=== PATIENT | female | born 1995 | race Caucasian/White ===

== ENCOUNTER 2022-05-07 17:06 | Emergency (ER) | payer OTHER ==
[2022-05-07] MEDS ORDERED: SODIUM CHLORIDE 0.9% 1,000 ML IV STA (17:32)
[2022-05-07] MEDS ORDERED: ONDANSETRON 4 MG/2 ML VIAL IVP STA (17:32)
[2022-05-07] MEDS ORDERED: diphenhydrAMINE 50 MG/ML 1 ML VIAL IVP STA (17:34)
[2022-05-07] MEDS ORDERED: DEXAMETHASONE SOD PHOSPHATE 10 MG/ML 1 ML VIAL IV STA (17:34)
[2022-05-07] MEDS ORDERED: KETOROLAC 15 MG/ML 1 ML VIAL IVP STA (17:34)
--- NOTE | 2022-05-07 17:37 | ED ---
General Adult HPI - General Chief complaint: Recheck/Abnormal Lab/Rx Stated complaint: diabetic, kidney pain Time Seen by Provider: 05/07/22 17:22 Source: patient, family, RN notes reviewed Mode of arrival: ambulatory - History of Present Illness Initial comments: This is a 26-year-old female who presents to the emergency department for multiple complaints. Patient states that for the last day, she has felt dizzy, lightheaded, confused, and states that her right kidney hurts. She has urinary pressure but no burning or pain. Also reports associated chest pain and bouts where she feels like her heart is racing. She is a type I diabetic and states that she has been anxious about being able to get enough insulin lately. Also reports associated nausea that has been a problem for several months. Additionally, she has had a headache for the last 1-2 weeks that is not getting better with any [id number] medications. Denies any fevers, chills, sore throat, cough, abdominal pain, vomiting, or diarrhea. MD Complaint: headache, kidney pain, confusion, weakness - Related Data Previous Rx's Medication Instructions Recorded Ondansetron Odt [Zofran Odt] 4 mg PO Q8HR PRN #30 tab 05/07/22 Allergies Allergy/AdvReac Type Severity Reaction Status Date / Time clonazepam [From Klonopin] AdvReac Hallucinati Verified 05/07/22 17:15 ons Influenza Virus Vaccines AdvReac Unknown Verified 05/07/22 17:15 Penicillins AdvReac Unknown Verified 05/07/22 17:15 sulfamethoxazole AdvReac Nausea & Verified 05/07/22 17:15 [From Bactrim] Vomiting trimethoprim [From Bactrim] AdvReac Nausea & Verified 05/07/22 17:15 Vomiting benadry AdvReac Vomiting Uncoded 05/07/22 17:15 Review of Systems ROS Statement: Those systems with pertinent positive or pertinent negative responses have been documented in the HPI. ROS Other: All systems not noted in ROS Statement are negative. Past Medical History Past Medical History: Diabetes Mellitus Additional Past Medical History / Comment(s): alcohol and substance abuse(recovery) History of Any Multi-Drug Resistant Organisms: None Reported Past Surgical History: No Surgical Hx Reported Past Psychological History: Depression Smoking Status: Vaper Past Alcohol Use History: None Reported Past Drug Use History: Cocaine, Prescription Drug Abuse General Exam General appearance: alert, in no apparent distress Head exam: Present: atraumatic, normocephalic, normal inspection Respiratory exam: Present: normal lung sounds bilaterally. Absent: respiratory distress, wheezes, rales, rhonchi, stridor Cardiovascular Exam: Present: regular rate, normal rhythm, normal heart sounds. Absent: systolic murmur, diastolic murmur, rubs, gallop, clicks GI/Abdominal exam: Present: soft, normal bowel sounds. Absent: distended, tenderness, guarding, rebound, rigid Neurological exam: Present: alert, oriented X3, CN II-XII intact Psychiatric exam: Present: normal affect, normal mood Skin exam: Present: warm, dry, intact, normal color. Absent: rash Course Vital Signs 05/07/22 05/07/22 05/07/22 17:08 19:30 20:58 Temperature 98.0 F 97.8 F 97.8 F Pulse Rate 83 81 76 Respiratory 16 16 20 Rate Blood Pressure 135/77 132/78 130/80 O2 Sat by Pulse 100 99 99 Oximetry EKG Findings - EKG Comments: EKG Findings:: Sinus rhythm. Ventricular rate 80 bpm, [place] interval 163 ms, QRS duration 101 ms, QTC 412 ms. Medical Decision Making - Medical Decision Making This is a 26-year-old female who presents to the emergency department for multiple complaints, including right flank pain and a headache. Lab work and u rinalysis were nonactionable. Chest x-ray revealed no acute cardiopulmonary process. COVID was negative. Given the patient's concern and notable CVA tenderness, CT scan of the abdomen and pelvis was obtained. This revealed mild fulness of the upper collecting systems but no signs of a calculus or other irregularity to account for the patient's symptoms. Her symptoms were relatively unchanged after IV fluids, Zofran, Decadron, and Toradol. Patient declines any additional medications. Discussed that the flank pain may be related to a muscular strain. Advised anti-inflammatories such as ibuprofen and Tylenol. We also discussed muscle relaxers, however the patient declined. Prescription for Zofran provided for any additional nausea. She was also given information for a new mortgage field inspector, as she is having difficulties with the one she has at [facility]. Return precautions reviewed in depth, the patient is instructed to return to the emergency department with any new, worsening, or concerning symptoms. Patient verbalized understanding. This case was discussed in detail with the attending ED physician. Presentation, findings, and treatment plan discussed in detail as well. - Lab Data Result diagrams: 05/07/22 17:57 05/07/22 17:57 Lab Results 05/07/22 05/07/22 05/07/22 Range/Units 17:57 17:57 17:57 WBC 8.6 (3.8-10.6) k/uL RBC 5.17 (3.80-5.40) m/uL Hgb 11.8 (11.4-16.0) gm/dL Hct 38.1 (34.0-46.0) % MCV 73.8 L (80.0-100.0) fL MCH 22.8 L (25.0-35.0) pg MCHC 30.9 L (31.0-37.0) g/dL RDW 14.3 (11.5-15.5) % Plt Count 255 (150-450) k/uL MPV 9.0 Neutrophils % 61 % Lymphocytes % 29 % Monocytes % 5 % Eosinophils % 1 % Basophils % 1 % Neutrophils # 5.2 (1.3-7.7) k/uL Lymphocytes # 2.5 (1.0-4.8) k/uL Monocytes # 0.5 (0-1.0) k/uL Eosinophils # 0.1 (0-0.7) k/uL Basophils # 0.1 (0-0.2) k/uL Microcytosis Slight PT 10.2 (9.0-12.0) sec INR 0.9 (<1.2) APTT 24.9 (22.0-30.0) sec D-Dimer 0.33 (<0.60) mg/L FEU Sodium 138 (137-145) mmol/L Potassium 3.6 (3.5-5.1) mmol/L Chloride 100 (98-107) mmol/L Carbon Dioxide 22 (22-30) mmol/L Anion Gap 16 mmol/L BUN 11 (7-17) mg/dL Creatinine 0.57 (0.52-1.04) mg/dL Est GFR (CKD-EPI)AfAm >90 (>60 ml/min/1.73 sqM) Est GFR (CKD-EPI)NonAf >90 (>60 ml/min/1.73 sqM) Glucose 133 H (74-99) mg/dL POC Glucose (mg/dL) (70-110) mg/dL POC Glu Design Quality Engineer ID Calcium 9.8 (8.4-10.2) mg/dL Magnesium 1.7 (1.6-2.3) mg/dL Total Bilirubin 0.6 (0.2-1.3) mg/dL AST 18 (14-36) U/L ALT 13 (4-34) U/L Alkaline Phosphatase 104 (38-126) U/L Troponin I (0.000-0.034) ng/mL Total Protein 8.3 H (6.3-8.2) g/dL Albumin 5.0 (3.5-5.0) g/dL Urine Color Urine Appearance (Clear) Urine pH (5.0-8.0) Ur Specific [place] (1.001-1.035) Urine Protein (Negative) Urine Glucose (UA) (Negative) Urine Ketones (Negative) Urine Blood (Negative) Urine Nitrite (Negative) Urine Bilirubin (Negative) Urine Urobilinogen (<2.0) mg/dL Ur Leukocyte Esterase (Negative) Urine HCG, Qual (Not Detectd) Coronavirus (PCR) (Not Detectd) 05/07/22 05/07/22 05/07/22 Range/Units 17:57 18:14 18:14 WBC (3.8-10.6) k/uL RBC (3.80-5.40) m/uL Hgb (11.4-16.0) gm/dL Hct (34.0-46.0) % MCV (80.0-100.0) fL MCH (25.0-35.0) pg MCHC (31.0-37.0) g/dL RDW (11.5-15.5) % Plt Count (150-450) k/uL MPV Neutrophils % % Lymphocytes % % Monocytes % % Eosinophils % % Basophils % % Neutrophils # (1.3-7.7) k/uL Lymphocytes # (1.0-4.8) k/uL Monocytes # (0-1.0) k/uL Eosinophils # (0-0.7) k/uL Basophils # (0-0.2) k/uL Microcytosis PT (9.0-12.0) sec INR (<1.2) APTT (22.0-30.0) sec D-Dimer (<0.60) mg/L FEU Sodium (137-145) mmol/L Potassium (3.5-5.1) mmol/L Chloride (98-107) mmol/L Carbon Dioxide (22-30) mmol/L Anion Gap mmol/L BUN (7-17) mg/dL Creatinine (0.52-1.04) mg/dL Est GFR (CKD-EPI)AfAm (>60 ml/min/1.73 sqM) Est GFR (CKD-EPI)NonAf (>60 ml/min/1.73 sqM) Glucose (74-99) mg/dL POC Glucose (mg/dL) (70-110) mg/dL POC Glu Design Quality Engineer ID Calcium (8.4-10.2) mg/dL Magnesium (1.6-2.3) mg/dL Total Bilirubin (0.2-1.3) mg/dL AST (14-36) U/L ALT (4-34) U/L Alkaline Phosphatase (38-126) U/L Troponin I <0.012 (0.000-0.034) ng/mL Total Protein (6.3-8.2) g/dL Albumin (3.5-5.0) g/dL Urine Color Colorless Urine Appearance Clear (Clear) Urine pH 7.0 (5.0-8.0) Ur Specific [place] 1.002 (1.001-1.035) Urine Protein Negative (Negative) Urine Glucose (UA) Negative (Negative) Urine Ketones Negative (Negative) Urine Blood Negative (Negative) Urine Nitrite Negative (Negative) Urine Bilirubin Negative (Negative) Urine Urobilinogen <2.0 (<2.0) mg/dL Ur Leukocyte Esterase Negative (Negative) Urine HCG, Qual Not Detected (Not Detectd) Coronavirus (PCR) (Not Detectd) 05/07/22 05/07/22 Range/Units 18:37 20:12 WBC (3.8-10.6) k/uL RBC (3.80-5.40) m/uL Hgb (11.4-16.0) gm/dL Hct (34.0-46.0) % MCV (80.0-100.0) fL MCH (25.0-35.0) pg MCHC (31.0-37.0) g/dL RDW (11.5-15.5) % Plt Count (150-450) k/uL MPV Neutrophils % % Lymphocytes % % Monocytes % % Eosinophils % % Basophils % % Neutrophils # (1.3-7.7) k/uL Lymphocytes # (1.0-4.8) k/uL Monocytes # (0-1.0) k/uL Eosinophils # (0-0.7) k/uL Basophils # (0-0.2) k/uL Microcytosis PT (9.0-12.0) sec INR (<1.2) APTT (22.0-30.0) sec D-Dimer (<0.60) mg/L FEU Sodium (137-145) mmol/L Potassium (3.5-5.1) mmol/L Chloride (98-107) mmol/L Carbon Dioxide (22-30) mmol/L Anion Gap mmol/L BUN (7-17) mg/dL Creatinine (0.52-1.04) mg/dL Est GFR (CKD-EPI)AfAm (>60 ml/min/1.73 sqM) Est GFR (CKD-EPI)NonAf (>60 ml/min/1.73 sqM) Glucose (74-99) mg/dL POC Glucose (mg/dL) 60 L (70-110) mg/dL POC Glu Design Quality Engineer ID Lavere, Ali Calcium (8.4-10.2) mg/dL Magnesium (1.6-2.3) mg/dL Total Bilirubin (0.2-1.3) mg/dL AST (14-36) U/L ALT (4-34) U/L Alkaline Phosphatase (38-126) U/L Troponin I (0.000-0.034) ng/mL Total Protein (6.3-8.2) g/dL Albumin (3.5-5.0) g/dL Urine Color Urine Appearance (Clear) Urine pH (5.0-8.0) Ur Specific [place] (1.001-1.035) Urine Protein (Negative) Urine Glucose (UA) (Negative) Urine Ketones (Negative) Urine Blood (Negative) Urine Nitrite (Negative) Urine Bilirubin (Negative) Urine Urobilinogen (<2.0) mg/dL Ur Leukocyte Esterase (Negative) Urine HCG, Qual (Not Detectd) Coronavirus (PCR) Not Detected (Not Detectd) - EKG Data EKG Comments: Sinus rhythm. Ventricular rate 80 bpm, [place] interval 163 ms, QRS duration 101 ms, QTC 412 ms. - Radiology Data Radiology results: report reviewed, image reviewed Disposition Clinical Impression: Nausea, Right flank pain Disposition: HOME SELF-CARE Instructions (If sedation given, give patient instructions): Acute Headache (ED), Acute Nausea and Vomiting (ED), Flank Pain (ED) Additional Instructions: Return to the emergency department with any new, worsening, or concerning symptoms. Take the Zofran up to every 8 hours as needed for nausea and vomiting. You can contact Dr. Romero, as listed below, to become established with a new mortgage field inspector. Follow up with your primary care provider in 1-2 days. Prescriptions: Ondansetron Odt [Zofran Odt] 4 mg PO Q8HR PRN #30 tab PRN Reason: Nausea And Vomiting Is patient prescribed a controlled substance at d/c from ED?: No Referrals: Wayne Ramirez DO [Primary Care Provider] - 1-2 days Marilee Romero MD [STAFF PHYSICIAN] - 1-2 days
[2022-05-07 18:15] LABS: Basophils # (A) 0.1 k/uL (0-0.2); Basophils % (A) 1 %; Eosinophils # (A) 0.1 k/uL (0-0.7); Eosinophils % (A) 1 %; HCT 38.1 % (34.0-46.0); HGB 11.8 gm/dL (11.4-16.0); Lymphocytes # (A) 2.5 k/uL (1.0-4.8); Lymphocytes % (A) 29 %; MCH 22.8 pg (25.0-35.0); MCHC 30.9 g/dL (31.0-37.0); MCV 73.8 fL (80.0-100.0); Microcytosis Slight; Monocytes # (A) 0.5 k/uL (0-1.0); Monocytes % (A) 5 %; Neutrophils # (A) 5.2 k/uL (1.3-7.7); Neutrophils % (A) 61 %; Platelet Count 255 k/uL (150-450); RBC 5.17 m/uL (3.80-5.40); RDW 14.3 % (11.5-15.5); WBC 8.6 k/uL (3.8-10.6)
[2022-05-07 18:17] LABS: ALT 13 U/L (4-34); AST 18 U/L (14-36); African American GFR (CKD) >90 (>60 ml/min/1.73 sqM); Alkaline Phosphatase 104 U/L (38-126); Anion Gap 16 mmol/L; Blood Urea Nitrogen 11 mg/dL (7-17); Calcium 9.8 mg/dL (8.4-10.2); Carbon Dioxide 22 mmol/L (22-30); Chloride 100 mmol/L (98-107); Glucose 133 mg/dL (74-99); Magnesium 1.7 mg/dL (1.6-2.3); Non-African American GFR(CKD) >90 (>60 ml/min/1.73 sqM); Potassium 3.6 mmol/L (3.5-5.1); Sodium 138 mmol/L (137-145); Total Bilirubin 0.6 mg/dL (0.2-1.3); Total Protein 8.3 g/dL (6.3-8.2)
[2022-05-07 18:22] LABS: INR 0.9 (<1.2); Partial Thromboplastin Time 24.9 sec (22.0-30.0); Prothrombin Time 10.2 sec (9.0-12.0)
--- NOTE | 2022-05-07 18:36 | XR ---
EXAMINATION TYPE: XR chest 2V DATE OF EXAM: 05/07/2022 COMPARISON: NONE HISTORY: Weakness TECHNIQUE: 2 views FINDINGS: Heart and mediastinum are normal. Lungs are clear. Diaphragm is normal. Bony thorax is inta ct. IMPRESSION: Normal chest.
[2022-05-07 18:54] LABS: Appearance,Urine Clear (Clear); Bilirubin,Urine Negative (Negative); Blood,Urine Negative (Negative); Color,Urine Colorless; Glucose,Urine (UA) Negative (Negative); Ketones,Urine Negative (Negative); Leukocyte Esterase,Urine Negative (Negative); Nitrite,Urine Negative (Negative); Protein,Urine Negative (Negative); Specific Gravity,Urine 1.002 (1.001-1.035); Urobilinogen,Urine <2.0 mg/dL (<2.0)
[2022-05-07] MEDS ORDERED: MORPHINE SULFATE 2 MG/ML SYRINGE IVP STA (19:34)
[2022-05-07] MEDS ORDERED: ORPHENADRINE 30 MG/ML 2 ML VIAL IVP STA (19:34)
--- NOTE | 2022-05-07 19:59 | CT ---
EXAMINATION TYPE: CT abdomen pelvis wo con DATE OF EXAM: 05/07/2022 COMPARISON: None HISTORY: Right sided flank pain CT DLP: 672.6 mGycm Automated exposure control for dose reduction was used. Images obtained from the diaphragm to the floor of the pelvis with no contrast. The lung bases are clear. No pleural effusion. Heart size is normal. No pericardial effusion. Liver s pleen stomach pancreas gallbladder appear intact. The bile ducts are not dilated. There is no adrenal mass. Kidneys have normal size. There is some fullness of the right ureter and ri ght renal pelvis. No ureteral calculus seen. Similar appearance is also present on the left side. No renal atrophy. No retroperitoneal adenopathy. The bladder distends smoothly. No inguinal hernia. No free fluid in th e pelvis. No evidence of a pelvic mass. There is no mesenteric edema. No ascites or free air. No sign of a bowel obstruction. The lumbar vert ebra. Intact with no compression fracture. Posterior elements are intact. Uterus is retroverted. Appe ndix is medial and posterior and appears normal. The bony pelvis is intact. The hip joints are intact. IMPRESSION: There is mild fullness of the upper collecting systems but no ureteral calculus seen. Clinical signif icance is not clear.
[2022-05-07 20:13] LABS: Glucose,Whole Blood 60 mg/dL (70-110)
[2022-05-07] MEDS ORDERED: ONDANSETRON 4 MG ODT STARTER PACK 2 TAB BTL PO STA (20:33)
[2022-05-07 20:46] VITALS: TEMP 97.8
[2022-05-07 20:59] VITALS: BP 130/80; PULSE 76; RESP 20
== END 2022-05-07 20:58 | disposition home or self-care (01) ==
LOC: EC 17:06
DX: R10.9 Unspecified abdominal pain (principal); E11.9 Type 2 diabetes mellitus without complications; F32.A Depression, unspecified; F17.290 Nicotine dependence, other tobacco product, uncomplicated; Z88.8 Allergy status to other drugs, medicaments and biological substances; Z88.7 Allergy status to serum and vaccine; Z88.2 Allergy status to sulfonamides; Z79.899 Other long term (current) drug therapy; Z20.822 Contact with and (suspected) exposure to COVID-19
CPT/HCPCS: 36415; 93005; 85379; 80053; 83735; 84484; 85025; 85610; 85730; 81003; 81025; 87635; 71046; 74176; 99284; 96374; 96375 ×2; 96361; J1100; J2405; J1885; S0119

== ENCOUNTER 2023-02-11 13:27 | Emergency (ER) | payer OTHER ==
[2023-02-11 13:36] VITALS: RESP 18
[2023-02-11 13:38] LABS: Glucose,Whole Blood 466 mg/dL (70-110)
[2023-02-11 14:26] LABS: Basophils % (A) 1 %; Eosinophils # (A) 0.1 k/uL (0-0.7); Eosinophils % (A) 2 %; HCT 32.9 % (34.0-46.0); HGB 10.2 gm/dL (11.4-16.0); Hypochromasia Marked; Lymphocytes # (A) 1.4 k/uL (1.0-4.8); Lymphocytes % (A) 28 %; MCH 22.7 pg (25.0-35.0); MCHC 31.1 g/dL (31.0-37.0); MCV 72.9 fL (80.0-100.0); Mean Platelet Volume 8.8; Microcytosis Slight; Monocytes # (A) 0.3 k/uL (0-1.0); Monocytes % (A) 6 %; Neutrophils % (A) 61 %; Platelet Count 226 k/uL (150-450); RBC 4.52 m/uL (3.80-5.40); RDW 14.6 % (11.5-15.5); WBC 4.9 k/uL (3.8-10.6)
[2023-02-11 14:28] LABS: ALT 13 U/L (4-34); AST 16 U/L (14-36); African American GFR (CKD) >90 (>60 ml/min/1.73 sqM); Albumin 4.4 g/dL (3.5-5.0); Alkaline Phosphatase 154 U/L (38-126); Anion Gap 12 mmol/L; Blood Urea Nitrogen 14 mg/dL (7-17); Calcium 8.8 mg/dL (8.4-10.2); Carbon Dioxide 20 mmol/L (22-30); Chloride 99 mmol/L (98-107); Creatine Kinase 81 U/L (30-135); Glucose 462 mg/dL (74-99); Non-African American GFR(CKD) >90 (>60 ml/min/1.73 sqM); Potassium 4.9 mmol/L (3.5-5.1); Sodium 131 mmol/L (137-145); Total Bilirubin 0.6 mg/dL (0.2-1.3); Total Protein 7.4 g/dL (6.3-8.2)
[2023-02-11 14:32] LABS: INR 0.9 (<1.2); Partial Thromboplastin Time 23.8 sec (22.0-30.0)
[2023-02-11] MEDS ORDERED: SODIUM CHLORIDE 0.9% 1,000 ML IV ONE ×2 (14:41→15:55)
[2023-02-11] MEDS ORDERED: ACETAMINOPHEN TAB 325 MG TAB PO STA (14:42)
[2023-02-11 14:50] LABS: Appearance,Urine Clear (Clear); Bilirubin,Urine Negative (Negative); Blood,Urine Negative (Negative); Color,Urine Colorless; Glucose,Urine (UA) 4+ (Negative); Ketones,Urine 1+ (Negative); Leukocyte Esterase,Urine Negative (Negative); Nitrite,Urine Negative (Negative); PH, Urine 5.5 (5.0-8.0); Protein,Urine Negative (Negative); Urobilinogen,Urine <2.0 mg/dL (<2.0)
--- NOTE | 2023-02-11 14:56 | XR ---
EXAMINATION TYPE: XR chest 2V DATE OF EXAM: 02/11/2023 COMPARISON: 05/07/22 HISTORY: Chest pain TECHNIQUE: Frontal and lateral views of the chest are obtained. FINDINGS: There is no focal air space opacity. No evidence for pneumothorax. No pleural effusion. The cardiac silhouette size is within normal limits. The osseous structures are grossly intact. IMPRESSION: 1. No acute cardiopulmonary process.
[2023-02-11 15:02] LABS: Glucose,Whole Blood 349 mg/dL (70-110)
--- NOTE | 2023-02-11 15:22 | ED ---
General Adult HPI - General Chief complaint: Neuro Symptoms/Deficit Stated complaint: Chest Pain,Numbness,Type 1 [place] Time Seen by Provider: 02/11/23 14:35 Source: patient, RN notes reviewed Mode of arrival: ambulatory Limitations: no limitations - History of Present Illness Initial comments: 27-year-old female with past medical history significant for diabetes the latest one presents to the emergency department with multiple complaints. She reports a generalized headache, numbness and tingling in her head, weakness in her upper extremities and a sharp pain in her chest that is worse with movement. She reports that she was at work standing when this occurred. She has not taken anything for his symptoms. Denies any fevers, cough, pal pitations, shortness of breath, nausea, vomiting, abdominal pain, dysuria, hematuria. She reports that her sugars have not been under control - Related Data Home Medications Medication Instructions Recorded Confirmed Glucagon [Gvoke Pfs 1-Pack Syringe] 1 mg SQ ONCE PRN 02/11/23 02/11/23 INSULIN LISPRO (HumaLOG) [humaLOG] See Protocol SQ TID-W/MEALS 02/11/23 02/11/23 Insulin Glargine [Lantus Vial] 22 unit SQ DAILY 02/11/23 02/11/23 Montelukast [Singulair] 10 mg PO DAILY 02/11/23 02/11/23 Naltrexone HCl [Revia] 50 mg PO DAILY 02/11/23 02/11/23 Venlafaxine HCl [Effexor XR] 75 mg PO DAILY 02/11/23 02/11/23 Allergies Allergy/AdvReac Type Severity Reaction Status Date / Time clonazepam [From Klonopin] AdvReac Hallucinati Verified 02/11/23 17:23 ons Influenza Virus Vaccines AdvReac Unknown Verified 02/11/23 17:23 Penicillins AdvReac Unknown Verified 02/11/23 17:23 sulfamethoxazole AdvReac Nausea & Verified 02/11/23 17:23 [From Bactrim] Vomiting trimethoprim [From Bactrim] AdvReac Nausea & Verified 02/11/23 17:23 Vomiting benadry AdvReac Vomiting Uncoded 05/07/22 17:15 Review of Systems ROS Statement: Those systems with pertinent positive or pertinent negative responses have been documented in the HPI. ROS Other: All systems not noted in ROS Statement are negative. Past Medical History Past Medical History: Diabetes Mellitus Additional Past Medical History / Comment(s): alcohol and substance abuse(recovery), type 1 diabetes History of Any Multi-Drug Resistant Organisms: None Reported Past Surgical History: No Surgical Hx Reported Past Psychological History: Depression Smoking Status: Vaper Past Alcohol Use History: None Reported Past Drug Use History: Cocaine, Prescription Drug Abuse General Exam - General Exam Comments Initial Comments: General: Alert, in no acute distress Head: atraumatic normocephalic. Eyes PERRL, EOMI intact, mucous membranes moist Respiratory: Lungs clear to auscultation bilaterally Cardiovascular: Heart rate regular rate and rhythm Abdominal: Soft without guarding or rebound Extremities: Normal inspection with full range of motion and normal capillary refill Neuroogic: alert and oriented 3, CN II-XII intact, able to ambulate with steady gait Skin: warm dry and intact with normal color Limitations: no limitations Course Vital Signs 02/11/23 02/11/23 02/11/23 13:30 14:36 15:00 Temperature 98.3 F Pulse Rate 86 94 80 Respiratory 18 Rate Blood Pressure 120/82 121/83 O2 Sat by Pulse 98 98 Oximetry 02/11/23 02/11/23 02/11/23 15:30 16:00 16:30 Temperature Pulse Rate 67 71 69 Respiratory Rate Blood Pressure 122/87 117/84 126/94 O2 Sat by Pulse 100 Oximetry 02/11/23 02/11/23 02/11/23 17:00 17:30 18:00 Temperature Pulse Rate 70 75 74 Respiratory Rate Blood Pressure 114/85 121/84 118/88 O2 Sat by Pulse 100 100 Oximetry 02/11/23 18:04 Temperature 98.6 F Pulse Rate Respiratory Rate Blood Pressure O2 Sat by Pulse Oximetry Medical Decision Making - Medical Decision Making Was pt. sent in by a medical professional or institution (, PA, JERKER, urgent care, hospital, or group home...) When possible be specific @ -[No] Did you speak to anyone other than the patient for history (EMS, parent, family, police, friend...)? What history was obtained from this source @ -[No] Did you review nursing and triage notes (agree or disagree)? Why? @ -[I reviewed and agree with nursing and triage notes] Were old charts reviewed (outside hosp., previous admission, EMS record, old EK G, old radiological studies, urgent care reports/EKG's, group home records)? Report findings @ -[No old charts were reviewed] Differential Diagnosis (chest pain, altered mental status, abdominal pain women, abdominal pain men, vaginal bleeding, weakness, fever, dyspnea, syncope, headache, dizziness, GI bleed, back pain, seizure, CVA, palpatations, mental he alth, musculoskeletal)? @ -[not applicable] EKG interpreted by me (3pts min.). @ -[As above] X-rays interpreted by me (1pt min.). @ -[None done] CT interpreted by me (1pt min.). @ -[None done] U/S interpreted by me (1pt. min.). @ -[None done] What testing was considered but not performed or refused? (CT, X-rays, U/S, labs)? Why? @ -[None] What meds were considered but not given or refused? Why? @ -[None] Did you discuss the management of the patient with other professionals (professionals i.e. , PA, JERKER, lab, RT, psych nurse, social work instructor, dermatologist, teacher, chief human resources officer, returned case inspector)? Give summary @ -[No] Was smoking cessation discussed for >3mins.? @ -[No] Was critical care preformed (if so, how long)? @ -[No] Were there social determinants of health that impacted care today? How? (Homelessness, low income, unemployed, alcoholism, drug addiction, transportation, low edu. Level, literacy, decrease access to med. care, fpc, rehab)? @ -[No] Was there de-escalation of care discussed even if they declined (Discuss DNR or withdrawal of care, Hospice)? DNR status @ -[No] What co-morbidities impacted this encounter? (DM, HTN, Smoking, COPD, CAD, Cancer, CVA, ARF, Chemo, Hep., AIDS, mental health diagnosis, sleep apnea, morbi d obesity)? @ -[None] Was patient admitted / discharged? Hospital course, mention meds given and route, prescriptions, significant lab abnormalities, going to OR and other pertinent info. @ -Discharged. This is a 27-year-old female who presents to the emergency department with headache. Patient had a thorough history and physical exam performed on the ED. Physical exam is essentially unremarkable heart rate regular rate and rhythm. lungs clear to Auscultation bilaterally, abdomen soft nontender. Patient able to ambulate with a steady gait. Patient had i lab work and imaging performed which was negative. I discussed the results in detail with the patient verbalized understanding all questions were addressed. She was given tylenol and 2L IV fluids with mild symptomatic relief on the emergency department. return precautions were discussed at length. She was discharged in stable condition. Case discussed with ISRA Shafer Who agrees with plan Undiagnosed new problem with uncertain prognosis? @ -[No] Drug Therapy requiring intensive monitoring for toxicity (Heparin, Nitro, Insulin, Cardizem)? @ -[No] Were any procedures done? @ -[No] Diagnosis/symptom? @ -headache Acute, or Chronic, or Acute on Chronic? @ -acute Uncomplicated (without systemic symptoms) or Complicated (systemic symptoms)? @ -uncomplicated Side effects of treatment? @ -[No] Exacerbation, Progression, or Severe Exacerbation? @ -[No] Poses a threat to life or bodily function? How? (Chest pain, [place], [place], pneumonia, PE, COPD, DKA, ARF, appy, cholecystitis, CVA, Diverticulitis, Homicidal, Suicidal, threat to staff... and all critical care pts) @ -low likelihood - Lab Data Result diagrams: 02/11/23 13:59 02/11/23 13:59 Lab Results 02/11/23 02/11/23 02/11/23 Range/Units 13:34 13:59 13:59 WBC 4.9 (3.8-10.6) k/uL RBC 4.52 (3.80-5.40) m/uL Hgb 10.2 L (11.4-16.0) gm/dL Hct 32.9 L (34.0-46.0) % MCV 72.9 L (80.0-100.0) fL MCH 22.7 L (25.0-35.0) pg MCHC 31.1 (31.0-37.0) g/dL RDW 14.6 (11.5-15.5) % Plt Count 226 (150-450) k/uL MPV 8.8 Neutrophils % 61 % Lymphocytes % 28 % Monocytes % 6 % Eosinophils % 2 % Basophils % 1 % Neutrophils # 3.0 (1.3-7.7) k/uL Lymphocytes # 1.4 (1.0-4.8) k/uL Monocytes # 0.3 (0-1.0) k/uL Eosinophils # 0.1 (0-0.7) k/uL Basophils # 0.0 (0-0.2) k/uL Hypochromasia Marked Microcytosis Slight PT 10.0 (9.0-12.0) sec INR 0.9 (<1.2) APTT 23.8 (22.0-30.0) sec Sodium (137-145) mmol/L Potassium (3.5-5.1) mmol/L Chloride (98-107) mmol/L Carbon Dioxide (22-30) mmol/L Anion Gap mmol/L BUN (7-17) mg/dL Creatinine (0.52-1.04) mg/dL Est GFR (CKD-EPI)AfAm (>60 ml/min/1.73 sqM) Est GFR (CKD-EPI)NonAf (>60 ml/min/1.73 sqM) Glucose (74-99) mg/dL POC Glucose (mg/dL) 466 H (70-110) mg/dL POC Glu Stucco Plasterer ID Belval, Erin Calcium (8.4-10.2) mg/dL Total Bilirubin (0.2-1.3) mg/dL AST (14-36) U/L ALT (4-34) U/L Alkaline Phosphatase (38-126) U/L Creatine Kinase (30-135) U/L Troponin I (0.000-0.034) ng/mL Total Protein (6.3-8.2) g/dL Albumin (3.5-5.0) g/dL Urine Color Urine Appearance (Clear) Urine pH (5.0-8.0) Ur Specific [place] (1.001-1.035) Urine Protein (Negative) Urine Glucose (UA) (Negative) Urine Ketones (Negative) Urine Blood (Negative) Urine Nitrite (Negative) Urine Bilirubin (Negative) Urine Urobilinogen (<2.0) mg/dL Ur Leukocyte Esterase (Negative) 02/11/23 02/11/23 02/11/23 Range/Units 13:59 13:59 14:35 WBC (3.8-10.6) k/uL RBC (3.80-5.40) m/uL Hgb (11.4-16.0) gm/dL Hct (34.0-46.0) % MCV (80.0-100.0) fL MCH (25.0-35.0) pg MCHC (31.0-37.0) g/dL RDW (11.5-15.5) % Plt Count (150-450) k/uL MPV Neutrophils % % Lymphocytes % % Monocytes % % Eosinophils % % Basophils % % Neutrophils # (1.3-7.7) k/uL Lymphocytes # (1.0-4.8) k/uL Monocytes # (0-1.0) k/uL Eosinophils # (0-0.7) k/uL Basophils # (0-0.2) k/uL Hypochromasia Microcytosis PT (9.0-12.0) sec INR (<1.2) APTT (22.0-30.0) sec Sodium 131 L (137-145) mmol/L Potassium 4.9 (3.5-5.1) mmol/L Chloride 99 (98-107) mmol/L Carbon Dioxide 20 L (22-30) mmol/L Anion Gap 12 mmol/L BUN 14 (7-17) mg/dL Creatinine 0.46 L (0.52-1.04) mg/dL Est GFR (CKD-EPI)AfAm >90 (>60 ml/min/1.73 sqM) Est GFR (CKD-EPI)NonAf >90 (>60 ml/min/1.73 sqM) Glucose 462 H (74-99) mg/dL POC Glucose (mg/dL) (70-110) mg/dL POC Glu Stucco Plasterer ID Calcium 8.8 (8.4-10.2) mg/dL Total Bilirubin 0.6 (0.2-1.3) mg/dL AST 16 (14-36) U/L ALT 13 (4-34) U/L Alkaline Phosphatase 154 H (38-126) U/L Creatine Kinase 81 (30-135) U/L Troponin I <0.012 (0.000-0.034) ng/mL Total Protein 7.4 (6.3-8.2) g/dL Albumin 4.4 (3.5-5.0) g/dL Urine Color Colorless Urine Appearance Clear (Clear) Urine pH 5.5 (5.0-8.0) Ur Specific [place] 1.030 (1.001-1.035) Urine Protein Negative (Negative) Urine Glucose (UA) 4+ H (Negative) Urine Ketones 1+ H (Negative) Urine Blood Negative (Negative) Urine Nitrite Negative (Negative) Urine Bilirubin Negative (Negative) Urine Urobilinogen <2.0 (<2.0) mg/dL Ur Leukocyte Esterase Negative (Negative) 02/11/23 Range/Units 14:57 WBC (3.8-10.6) k/uL RBC (3.80-5.40) m/uL Hgb (11.4-16.0) gm/dL Hct (34.0-46.0) % MCV (80.0-100.0) fL MCH (25.0-35.0) pg MCHC (31.0-37.0) g/dL RDW (11.5-15.5) % Plt Count (150-450) k/uL MPV Neutrophils % % Lymphocytes % % Monocytes % % Eosinophils % % Basophils % % Neutrophils # (1.3-7.7) k/uL Lymphocytes # (1.0-4.8) k/uL Monocytes # (0-1.0) k/uL Eosinophils # (0-0.7) k/uL Basophils # (0-0.2) k/uL Hypochromasia Microcytosis PT (9.0-12.0) sec INR (<1.2) APTT (22.0-30.0) sec Sodium (137-145) mmol/L Potassium (3.5-5.1) mmol/L Chloride (98-107) mmol/L Carbon Dioxide (22-30) mmol/L Anion Gap mmol/L BUN (7-17) mg/dL Creatinine (0.52-1.04) mg/dL Est GFR (CKD-EPI)AfAm (>60 ml/min/1.73 sqM) Est GFR (CKD-EPI)NonAf (>60 ml/min/1.73 sqM) Glucose (74-99) mg/dL POC Glucose (mg/dL) 349 H (70-110) mg/dL POC Glu St[employer]o Plasterer ID Manuela Velázquez Calcium (8.4-10.2) mg/dL Total Bilirubin (0.2-1.3) mg/dL AST (14-36) U/L ALT (4-34) U/L Alkaline Phosphatase (38-126) U/L Creatine Kinase (30-135) U/L Troponin I (0.000-0.034) ng/mL Total Protein (6.3-8.2) g/dL Albumin (3.5-5.0) g/dL Urine Color Urine Appearance (Clear) Urine pH (5.0-8.0) Ur Specific [place] (1.001-1.035) Urine Protein (Negative) Urine Glucose (UA) (Negative) Urine Ketones (Negative) Urine Blood (Negative) Urine Nitrite (Negative) Urine Bilirubin (Negative) Urine Urobilinogen (<2.0) mg/dL Ur Leukocyte Esterase (Negative) Disposition Clinical Impression: Headache Disposition: HOME SELF-CARE Condition: Stable Instructions (If sedation given, give patient instructions): Acute Headache (ED), Diabetes Type 1: Management (ED) Additional Instructions: Please return to the nearest emergency department if symptoms worsen or persist Is patient prescribed a controlled substance at d/c from ED?: No Referrals: Wayne Ramirez DO [Primary Care Provider] - 1-2 days Time of Disposition: 17:47
[2023-02-11 18:04] VITALS: BP 118/88; PULSE 74
[2023-02-11 18:07] VITALS: TEMP 98.6
== END 2023-02-11 18:10 | disposition home or self-care (01) ==
LOC: EC 13:27
DX: R51.9 Headache, unspecified (principal); E10.9 Type 1 diabetes mellitus without complications; F32.A Depression, unspecified; Z79.4 Long term (current) use of insulin; Z79.899 Other long term (current) drug therapy; Z88.0 Allergy status to penicillin; Z88.1 Allergy status to other antibiotic agents; Z88.2 Allergy status to sulfonamides; Z88.7 Allergy status to serum and vaccine
CPT/HCPCS: 36415; 71046; 80053; 81003; 82550; 84484; 85025; 85610; 85730; 93005; 96360; 99285

== ENCOUNTER 2023-03-13 14:03 | Inpatient (IN) | payer OTHER ==
[2023-03-13 14:41] LABS: Glucose,Whole Blood 393 mg/dL (70-110)
[2023-03-13 15:08] LABS: Basophils % (A) 1 %; Eosinophils % (A) 1 %; HGB 11.7 gm/dL (11.4-16.0); Hypochromasia Marked; Lymphocytes # (A) 1.5 k/uL (1.0-4.8); Lymphocytes % (A) 30 %; MCH 22.8 pg (25.0-35.0); MCHC 31.5 g/dL (31.0-37.0); MCV 72.3 fL (80.0-100.0); Microcytosis Moderate; Monocytes # (A) 0.3 k/uL (0-1.0); Monocytes % (A) 5 %; Neutrophils % (A) 61 %; Platelet Count 213 k/uL (150-450); RBC 5.11 m/uL (3.80-5.40); RDW 15.1 % (11.5-15.5); WBC 4.9 k/uL (3.8-10.6)
[2023-03-13 15:17] LABS: INR 0.9 (<1.2); Prothrombin Time 9.7 sec (9.0-12.0)
[2023-03-13 15:59] LABS: ALT 15 U/L (4-34); AST 19 U/L (14-36); African American GFR (CKD) >90 (>60 ml/min/1.73 sqM); Albumin 5.1 g/dL (3.5-5.0); Alkaline Phosphatase 121 U/L (38-126); Anion Gap 21 mmol/L; Blood Urea Nitrogen 18 mg/dL (7-17); Calcium 9.4 mg/dL (8.4-10.2); Chloride 101 mmol/L (98-107); Glucose 391 mg/dL (74-99); Non-African American GFR(CKD) >90 (>60 ml/min/1.73 sqM); Potassium 4.9 mmol/L (3.5-5.1); Sodium 131 mmol/L (137-145); Total Bilirubin 0.8 mg/dL (0.2-1.3)
[2023-03-13 16:12] LABS: Carbon Dioxide 9 mmol/L (22-30)
[2023-03-13 18:08] LABS: Appearance,Urine Clear (Clear); Bilirubin,Urine Negative (Negative); Blood,Urine Negative (Negative); Color,Urine Colorless; Leukocyte Esterase,Urine Negative (Negative); Nitrite,Urine Negative (Negative); Protein,Urine Negative (Negative); Specific Gravity,Urine 1.021 (1.001-1.035); Urobilinogen,Urine <2.0 mg/dL (<2.0)
[2023-03-13 18:24] LABS: Glucose,Urine (UA) 4+ (Negative); Ketones,Urine 4+ (Negative)
[2023-03-13] MEDS ORDERED: SODIUM CHLORIDE 0.9% 1,000 ML IV ONE (19:37)
[2023-03-13 20:56] LABS: VBG PH 7.21 (7.31-7.41)
[2023-03-13] MEDS ORDERED: DEXTROSE 50% SYRINGE 50 ML IVP PRN ×2 (21:01)
[2023-03-13] MEDS ORDERED: Magnesium Replacement Protocol 1 EACH MISC MISCELLANE PRN (21:01)
[2023-03-13] MEDS ORDERED: Potassium Replacement Protocol 1 EACH MISC MISCELLANE PRN (21:01)
[2023-03-13] MEDS ORDERED: INSULIN REGULAR 100 UNIT in SODIUM CHLORIDE 0.9% 100 ML IV SCH (21:30)
[2023-03-13 21:35] LABS: Glucose,Whole Blood 230 mg/dL (70-110)
--- NOTE | 2023-03-13 21:42 | ED ---
General Adult HPI - General Chief complaint: Dizziness Stated complaint: Dizziness,SOB - Type1 Diab Time Seen by Provider: 03/13/23 19:05 Source: patient Mode of arrival: wheelchair Limitations: no limitations - History of Present Illness Initial comments: This is a 27-year-old female with a past medical history including type 1 diabetes presented to the emergency department for multiple complaints including dizziness, weakness and chest discomfort over the last 1 day. The patient stated that she woke up with these symptoms and stated that she could not get ready without stopping with soreness of breath. The patient was otherwise resting in bed comfortably and did state that her blood sugars were more elevated than she is used to. On arrival, the patient denied any other acute pain or complaints but did state that she was mildly lightheaded. The patient denied any other pain at this time. - Related Data Home Medications Medication Instructions Recorded Confirmed Glucagon [Gvoke Pfs 1-Pack Syringe] 1 mg SQ ONCE PRN 02/11/23 03/13/23 INSULIN LISPRO (HumaLOG) [humaLOG] See Protocol SQ TID-W/MEALS 02/11/23 03/13/23 Insulin Glargine [Lantus Vial] 22 unit SQ DAILY 02/11/23 03/13/23 Montelukast [Singulair] 10 mg PO DAILY 02/11/23 03/13/23 Naltrexone HCl [Revia] 50 mg PO DAILY 02/11/23 03/13/23 Venlafaxine HCl [Effexor XR] 75 mg PO DAILY 02/11/23 03/13/23 Metoclopramide [Reglan] 10 mg PO BID 03/13/23 03/13/23 Allergies Allergy/AdvReac Type Severity Reaction Status Date / Time clonazepam [From Klonopin] AdvReac Hallucinati Verified 02/11/23 17:23 ons Influenza Virus Vaccines AdvReac Unknown Verified 02/11/23 17:23 Penicillins AdvReac Unknown Verified 02/11/23 17:23 sulfamethoxazole AdvReac Nausea & Verified 02/11/23 17:23 [From Bactrim] Vomiting trimethoprim [From Bactrim] AdvReac Nausea & Verified 02/11/23 17:23 Vomiting benadry AdvReac Vomiting Uncoded 05/07/22 17:15 Review of Systems ROS Statement: Those systems with pertinent positive or pertinent negative responses have been documented in the HPI. ROS Other: All systems not noted in ROS Statement are negative. Past Medical History Past Medical History: Diabetes Mellitus Additional Past Medical History / Comment(s): alcohol and substance abuse(recovery), type 1 diabetes History of Any Multi-Drug Resistant Organisms: None Reported Past Surgical History: No Surgical Hx Reported Past Psychological History: Depression Smoking Status: Vaper Past Alcohol Use History: None Reported Past Drug Use History: Cocaine, Prescription Drug Abuse General Exam Limitations: no limitations General appearance: alert, in no apparent distress Head exam: Present: atraumatic, normocephalic, normal inspection Eye exam: Present: normal appearance, PERRL Pupils: Present: normal accommodation ENT exam: Present: normal exam, normal oropharynx, mucous membranes moist Neck exam: Present: normal inspection, full ROM Respiratory exam: Present: normal lung sounds bilaterally Cardiovascular Exam: Present: regular rate, normal rhythm, normal heart sounds GI/Abdominal exam: Present: soft, normal bowel sounds Extremities exam: Present: normal inspection, full ROM Back exam: Present: normal inspection, full ROM Neurological exam: Present: alert, oriented X3, CN II-XII intact Psychiatric exam: Present: normal affect, normal mood Skin exam: Present: warm, dry Course Vital Signs 03/13/23 14:38 Temperature 98 F Pulse Rate 79 Respiratory 20 Rate Blood Pressure 120/78 O2 Sat by Pulse 98 Oximetry EKG Findings - EKG Comments: EKG Findings:: An EKG was obtained and was interpreted by myself showing a rate of 78, AR interval 1:30, QR rastafari 93 and QTC of 421. This EKG showed a normal sinus rhythm with no ST segment elevation or depression noted. Medical Decision Making - Medical Decision Making Was pt. sent in by a medical professional or institution (, PA, DRILLER HELPER, urgent care, hospital, or skilled nursing...) When possible be specific @ -No Did you speak to anyone other than the patient for history (EMS, parent, family, police, friend...)? What history was obtained from this source @ -No Did you review nursing and triage notes (agree or disagree)? Why? @ -I reviewed and agree with nursing and triage notes Were old charts reviewed (outside hosp., previous admission, EMS record, old EKG, old radiological studies, urgent care reports/EKG's, skilled nursing records)? Report findings @ -No old charts were reviewed Differential Diagnosis (chest pain, altered mental status, abdominal pain women, abdominal pain men, vaginal bleeding, weakness, fever, dyspnea, syncope, headache, dizziness, GI bleed, back pain, seizure, CVA, palpatations, mental health)? @ -DKA, hyperglycemia, dehydration EKG interpreted by me (3pts min.). @ -As above X-rays interpreted by me (1pt min.). @ -None done CT interpreted by me (1pt min.). @ -None done U/S interpreted by me (1pt. min.). @ -None done What testing was considered but not performed or refused? (CT, X-rays, U/S, labs)? Why? @ -None What meds were considered but not given or refused? Why? @ -None Did you discuss the management of the patient with other professionals (professionals i.e. , PA, DRILLER HELPER, lab, RT, psych nurse, social services, river rat, teacher, sailing officer, medical case worker)? Give summary @ -Yes, Admitting physician was contacted regarding patient admission. Was smoking cessation discussed for >3mins.? @ -No Was critical care preformed (if so, how long)? @ -Yes, see above Were there social determinants of health that impacted care today? How? (Homelessness, low income, unemployed, alcoholism, drug addiction, transportation, low edu. Level, literacy, decrease access to med. care, [facility], rehab)? @ -No Was there de-escalation of care discussed even if they declined (Discuss DNR or withdrawal of care, Hospice)? DNR status @ -No What co-morbidities impacted this encounter? (DM, HTN, Smoking, COPD, CAD, Cancer, CVA, ARF, Chemo, Hep., AIDS, mental health diagnosis, sleep apnea, morbid obesity)? @ -Type 1 diabetes Was patient admitted / discharged? Hospital course, mention meds given and route, prescriptions, significant lab abnormalities, going to OR and other pertinent info. @ -The patient was seen and evaluated in emergency department. Physical exam, the patient was resting in bed without any acute distress. Vital signs admission were stable. Due to the nature the patient's complaints, laboratory workup was obtained. All to me and showed a mild DKA with acidosis on the VBG and positive ketones in the urine. Anion gap was 21. The patient was started on insulin drip and will be admitted for further workup and evaluation. The patient was agreeable to this and the admitting physician was accepting. The patient was admitted in stable condition. Undiagnosed new problem with uncertain prognosis? @ -No Drug Therapy requiring intensive monitoring for toxicity (Heparin, Nitro, Insulin, Cardizem)? @ -Insulin Were any procedures done? @ -No Diagnosis/symptom? @ -DKA, mild Acute, or Chronic, or Acute on Chronic? @ -Acute Uncomplicated (without systemic symptoms) or Complicated (systemic symptoms)? @ -Complicated Side effects of treatment? @ -No Exacerbation, Progression, or Severe Exacerbation? @ -No Poses a threat to life or bodily function? How? (Chest pain, [place], [place], pneumonia, PE, COPD, DKA, ARF, appy, cholecystitis, CVA, Diverticulitis, Homicidal, Suicidal, threat to staff... and all critical care pts) @ -Yes, continued DKA can lead to permanent damage and possible . - Lab Data Result diagrams: 03/13/23 14:51 03/13/23 14:51 Lab Results 03/13/23 03/13/23 03/13/23 Range/Units 14:39 14:51 14:51 WBC 4.9 (3.8-10.6) k/uL RBC 5.11 (3.80-5.40) m/uL Hgb 11.7 (11.4-16.0) gm/dL Hct 37.0 (34.0-46.0) % MCV 72.3 L (80.0-100.0) fL MCH 22.8 L (25.0-35.0) pg MCHC 31.5 (31.0-37.0) g/dL RDW 15.1 (11.5-15.5) % Plt Count 213 (150-450) k/uL MPV 9.0 Neutrophils % 61 % Lymphocytes % 30 % Monocytes % 5 % Eosinophils % 1 % Basophils % 1 % Neutrophils # 3.0 (1.3-7.7) k/uL Lymphocytes # 1.5 (1.0-4.8) k/uL Monocytes # 0.3 (0-1.0) k/uL Eosinophils # 0.0 (0-0.7) k/uL Basophils # 0.0 (0-0.2) k/uL Hypochromasia Marked Microcytosis Moderate PT 9.7 (9.0-12.0) sec INR 0.9 (<1.2) VBG pH (7.31-7.41) VBG pCO2 (37-51) mmHg VBG HCO3 (24-28) mmol/L Sodium (137-145) mmol/L Potassium (3.5-5.1) mmol/L Chloride (98-107) mmol/L Carbon Dioxide (22-30) mmol/L Anion Gap mmol/L BUN (7-17) mg/dL Creatinine (0.52-1.04) mg/dL Est GFR (CKD-EPI)AfAm (>60 ml/min/1.73 sqM) Est GFR (CKD-EPI)NonAf (>60 ml/min/1.73 sqM) Glucose (74-99) mg/dL POC Glucose (mg/dL) 393 H (70-110) mg/dL POC Glu Coiler ID Marion, Ej Calcium (8.4-10.2) mg/dL Total Bilirubin (0.2-1.3) mg/dL AST (14-36) U/L ALT (4-34) U/L Alkaline Phosphatase (38-126) U/L Troponin I (0.000-0.034) ng/mL Total Protein (6.3-8.2) g/dL Albumin (3.5-5.0) g/dL Urine Color Urine Appearance (Clear) Urine pH (5.0-8.0) Ur Specific [place] (1.001-1.035) Urine Protein (Negative) Urine Glucose (UA) (Negative) Urine Ketones (Negative) Urine Blood (Negative) Urine Nitrite (Negative) Urine Bilirubin (Negative) Urine Urobilinogen (<2.0) mg/dL Ur Leukocyte Esterase (Negative) 03/13/23 03/13/23 03/13/23 Range/Units 14:51 14:51 17:58 WBC (3.8-10.6) k/uL RBC (3.80-5.40) m/uL Hgb (11.4-16.0) gm/dL Hct (34.0-46.0) % MCV (80.0-100.0) fL MCH (25.0-35.0) pg MCHC (31.0-37.0) g/dL RDW (11.5-15.5) % Plt Count (150-450) k/uL MPV Neutrophils % % Lymphocytes % % Monocytes % % Eosinophils % % Basophils % % Neutrophils # (1.3-7.7) k/uL Lymphocytes # (1.0-4.8) k/uL Monocytes # (0-1.0) k/uL Eosinophils # (0-0.7) k/uL Basophils # (0-0.2) k/uL Hypochromasia Microcytosis PT (9.0-12.0) sec INR (<1.2) VBG pH (7.31-7.41) VBG pCO2 (37-51) mmHg VBG HCO3 (24-28) mmol/L Sodium 131 L (137-145) mmol/L Potassium 4.9 (3.5-5.1) mmol/L Chloride 101 (98-107) mmol/L Carbon Dioxide 9 L* (22-30) mmol/L Anion Gap 21 mmol/L BUN 18 H (7-17) mg/dL Creatinine 0.62 (0.52-1.04) mg/dL Est GFR (CKD-EPI)AfAm >90 (>60 ml/min/1.73 sqM) Est GFR (CKD-EPI)NonAf >90 (>60 ml/min/1.73 sqM) Glucose 391 H (74-99) mg/dL POC Glucose (mg/dL) (70-110) mg/dL POC Glu Coiler ID Calcium 9.4 (8.4-10.2) mg/dL Total Bilirubin 0.8 (0.2-1.3) mg/dL AST 19 (14-36) U/L ALT 15 (4-34) U/L Alkaline Phosphatase 121 (38-126) U/L Troponin I <0.012 (0.000-0.034) ng/mL Total Protein 9.0 H (6.3-8.2) g/dL Albumin 5.1 H (3.5-5.0) g/dL Urine Color Colorless Urine Appearance Clear (Clear) Urine pH 5.0 (5.0-8.0) Ur Specific [place] 1.021 (1.001-1.035) Urine Protein Negative (Negative) Urine Glucose (UA) 4+ H (Negative) Urine Ketones 4+ H (Negative) Urine Blood Negative (Negative) Urine Nitrite Negative (Negative) Urine Bilirubin Negative (Negative) Urine Urobilinogen <2.0 (<2.0) mg/dL Ur Leukocyte Esterase Negative (Negative) 03/13/23 03/13/23 Range/Units 19:45 21:33 WBC (3.8-10.6) k/uL RBC (3.80-5.40) m/uL Hgb (11.4-16.0) gm/dL Hct (34.0-46.0) % MCV (80.0-100.0) fL MCH (25.0-35.0) pg MCHC (31.0-37.0) g/dL RDW (11.5-15.5) % Plt Count (150-450) k/uL MPV Neutrophils % % Lymphocytes % % Monocytes % % Eosinophils % % Basophils % % Neutrophils # (1.3-7.7) k/uL Lymphocytes # (1.0-4.8) k/uL Monocytes # (0-1.0) k/uL Eosinophils # (0-0.7) k/uL Basophils # (0-0.2) k/uL Hypochromasia Microcytosis PT (9.0-12.0) sec INR (<1.2) VBG pH 7.21 L (7.31-7.41) VBG pCO2 38 (37-51) mmHg VBG HCO3 15 L (24-28) mmol/L Sodium (137-145) mmol/L Potassium (3.5-5.1) mmol/L Chloride (98-107) mmol/L Carbon Dioxide (22-30) mmol/L Anion Gap mmol/L BUN (7-17) mg/dL Creatinine (0.52-1.04) mg/dL Est GFR (CKD-EPI)AfAm (>60 ml/min/1.73 sqM) Est GFR (CKD-EPI)NonAf (>60 ml/min/1.73 sqM) Glucose (74-99) mg/dL POC Glucose (mg/dL) 230 H (70-110) mg/dL POC Glu Coiler ID Janay Mccarthy Calcium (8.4-10.2) mg/dL Total Bilirubin (0.2-1.3) mg/dL AST (14-36) U/L ALT (4-34) U/L Alkaline Phosphatase (38-126) U/L Troponin I (0.000-0.034) ng/mL Total Protein (6.3-8.2) g/dL Albumin (3.5-5.0) g/dL Urine Color Urine Appearance (Clear) Urine pH (5.0-8.0) Ur Specific [place] (1.001-1.035) Urine Protein (Negative) Urine Glucose (UA) (Negative) Urine Ketones (Negative) Urine Blood (Negative) Urine Nitrite (Negative) Urine Bilirubin (Negative) Urine Urobilinogen (<2.0) mg/dL Ur Leukocyte Esterase (Negative) Critical Care Time Critical Care Time: Yes Total Critical Care Time: 31 Disposition Clinical Impression: DKA (diabetic ketoacidosis) Disposition: ADMITTED IP TO THIS [facility] Condition: Stable Is patient prescribed a controlled substance at d/c from ED?: No Referrals: Wayne Ramirez DO [Primary Care Provider] - 1-2 days Time of Disposition: 20:00 Decision to Admit Reason: Admit from EC Decision Date: 03/13/23 Decision Time: 20:00
[2023-03-13] MEDS: SODIUM CHLORIDE 0.9% 1,000 ML IV SCH (21:45)
[2023-03-13] MEDS: D5-0.45% NACL WITH KCL 20MEQ/L 1,000 ML IV SCH (22:09)
[2023-03-13 22:49] LABS: Glucose,Whole Blood 221 mg/dL (70-110)
[2023-03-14 00:17] LABS: Glucose,Whole Blood 178 mg/dL (70-110)
[2023-03-14 01:06] LABS: Glucose,Whole Blood 161 mg/dL (70-110)
--- NOTE | 2023-03-14 01:08 | P.HPIM ---
History of Present Illness H&P Date: 03/13/23 Patient is a 27-year-old female with a PMH of type I DM who presents to the emergency room with complaints of dizziness, nausea, and chest tightness. The patient reports that over the past few days, her blood sugars have been running higher than usual around 300. She reports taking 20 units of Lantus with sliding scale Humalog throughout the day with meals. She reports waking up this morning with the above symptoms which gradually worsened throughout the day. She has not seen an appliance parts counter clerk or a PCP in the last 3-4 months and reports her last A1c was 11 or 12. Denied experiencing fever, chills, shortness of breath, diarrhea. EKG in the emergency room revealed sinus rhythm at [address]/T-wave changes noted as reviewed by me. Laboratory evaluation revealed a glucose of 391 with CO2 9, ABG pH 7.21, and anion gap 21 with 4+ ketones in the urine. Furthermore MCV was 72.3. ED documentation reviewed and case discussed with ED provider. Review of systems: Pertinent positives and negatives as discussed in HPI, a complete review of systems was performed and all other systems are negative. Physical examination: Vital signs reviewed General: non toxic, no distress, appears at stated age Derm: no unusual rashes/lesions, warm Head: atraumatic, normocephalic, symmetric Eyes: EOMI, no lid lag, anicteric sclera, pupils equal round reactive to light ENT: Nose and ears atraumatic Neck: No cervical lymphadenopathy, trachea midline, supple Mouth: no lip lesion, mucus membranes moist Cardiovascular: S1S2 reg, no murmur, positive dorsalis pedis pulse bilateral, no edema Lungs: CTA bilateral, no rhonchi, no rales, no accessory muscle use Abdominal: soft, nontender to palpation, no guarding Ext: muscle strength 5 out of 5 in all 4 extremities grossly, no gross muscle atrophy, no contractures, Neuro: CN II-XI grossly intact, no gross focal neuro deficits Psych: Alert, oriented, appropriate affect Assessment: DKA Hyponatremia, likely pseudo-in setting of hyperglycemia Microcytosis Imaging: EKG in the emergency room revealed sinus rhythm at [address]/T-wave changes noted as reviewed by me. Data Review: Laboratory evaluation revealed a glucose of 391 with CO2 9, ABG pH 7.21, and anion gap 21 with 4+ ketones in the urine. Furthermore MCV was 72.3. Plan: Continue with insulin infusion per DKA protocol IV fluids with normal saline and subsequently D5 half NS Check blood glucose every hour and BMP every 2 hours Check Iron panel Patient strongly advised on the importance of close follow-up for diabetes care Patient also advised on the importance of better glycemic control to avoid long- term complications DVT prophylaxis: Lovenox The patient is admitted with an anticipated greater than 2 midnight stay for evaluation of DKA CODE STATUS: Full Code Discussed with: Patient Anticipated discharge place: Home Past Medical History Past Medical History: Diabetes Mellitus Additional Past Medical History / Comment(s): alcohol and substance abuse(recovery), type 1 diabetes History of Any Multi-Drug Resistant Organisms: None Reported Past Surgical History: No Surgical Hx Reported Past Psychological History: Depression Smoking Status: Vaper Past Alcohol Use History: None Reported Past Drug Use History: Cocaine, Prescription Drug Abuse - Past Family History Mother Family Medical History: Hyperlipidemia Medications and Allergies Home Medications Medication Instructions Recorded Confirmed Type Glucagon [Gvoke Pfs 1-Pack Syringe] 1 mg SQ ONCE PRN 02/11/23 03/13/23 History INSULIN LISPRO (HumaLOG) [humaLOG] See Protocol SQ TID-W/MEALS 02/11/23 03/13/23 History Insulin Glargine [Lantus Vial] 22 unit SQ DAILY 02/11/23 03/13/23 History Montelukast [Singulair] 10 mg PO DAILY 02/11/23 03/13/23 History Naltrexone HCl [Revia] 50 mg PO DAILY 02/11/23 03/13/23 History Venlafaxine HCl [Effexor XR] 75 mg PO DAILY 02/11/23 03/13/23 History Metoclopramide [Reglan] 10 mg PO BID 03/13/23 03/13/23 History Allergies Allergy/AdvReac Type Severity Reaction Status Date / Time clonazepam [From Klonopin] AdvReac Hallucinati Verified 02/11/23 17:23 ons Influenza Virus Vaccines AdvReac Unknown Verified 02/11/23 17:23 Penicillins AdvReac Unknown Verified 02/11/23 17:23 sulfamethoxazole AdvReac Nausea & Verified 02/11/23 17:23 [From Bactrim] Vomiting trimethoprim [From Bactrim] AdvReac Nausea & Verified 02/11/23 17:23 Vomiting benadry AdvReac Vomiting Uncoded 05/07/22 17:15 Physical Exam Vitals: Vital Signs Temp Pulse Resp BP Pulse Ox 03/13/23 21:46 79 114/79 100 03/13/23 14:38 98 F 79 20 120/78 98 Intake and Output 03/13/23 03/13/23 03/14/23 14:59 22:59 06:59 Other: Weight 71.668 kg Results CBC & Chem 7: 03/13/23 14:51 03/13/23 14:51 Labs: Abnormal Lab Results - Last 24 Hours (Table) 03/13/23 03/13/23 03/13/23 Range/Units 14:39 14:51 14:51 MCV 72.3 L (80.0-100.0) fL MCH 22.8 L (25.0-35.0) pg VBG pH (7.31-7.41) VBG HCO3 (24-28) mmol/L Sodium 131 L (137-145) mmol/L Carbon Dioxide 9 L* (22-30) mmol/L BUN 18 H (7-17) mg/dL Glucose 391 H (74-99) mg/dL POC Glucose (mg/dL) 393 H (70-110) mg/dL Total Protein 9.0 H (6.3-8.2) g/dL Albumin 5.1 H (3.5-5.0) g/dL Urine Glucose (UA) (Negative) Urine Ketones (Negative) 03/13/23 03/13/23 03/13/23 Range/Units 17:58 19:45 21:33 MCV (80.0-100.0) fL MCH (25.0-35.0) pg VBG pH 7.21 L (7.31-7.41) VBG HCO3 15 L (24-28) mmol/L Sodium (137-145) mmol/L Carbon Dioxide (22-30) mmol/L BUN (7-17) mg/dL Glucose (74-99) mg/dL POC Glucose (mg/dL) 230 H (70-110) mg/dL Total Protein (6.3-8.2) g/dL Albumin (3.5-5.0) g/dL Urine Glucose (UA) 4+ H (Negative) Urine Ketones 4+ H (Negative) 03/13/23 Range/Units 22:48 MCV (80.0-100.0) fL MCH (25.0-35.0) pg VBG pH (7.31-7.41) VBG HCO3 (24-28) mmol/L Sodium (137-145) mmol/L Carbon Dioxide (22-30) mmol/L BUN (7-17) mg/dL Glucose (74-99) mg/dL POC Glucose (mg/dL) 221 H (70-110) mg/dL Total Protein (6.3-8.2) g/dL Albumin (3.5-5.0) g/dL Urine Glucose (UA) (Negative) Urine Ketones (Negative)
[2023-03-14] MEDS: SODIUM CHLORIDE 0.9% 1,000 ML IV SCH (01:36)
[2023-03-14 01:39] LABS: African American GFR (CKD) >90 (>60 ml/min/1.73 sqM); Anion Gap 10 mmol/L; Blood Urea Nitrogen 9 mg/dL (7-17); Carbon Dioxide 17 mmol/L (22-30); Chloride 108 mmol/L (98-107); Glucose 149 mg/dL (74-99); Non-African American GFR(CKD) >90 (>60 ml/min/1.73 sqM); Potassium 3.3 mmol/L (3.5-5.1); Sodium 135 mmol/L (137-145)
[2023-03-14] MEDS ORDERED: POTASSIUM CHLORIDE ER 20 MEQ TAB.ER PO STA (01:54)
[2023-03-14] MEDS: POTASSIUM CHLORIDE 10 MEQ in WATER FOR INJECTION 1 100ML.BAG IVPB SCH ×4 (02:10→06:02)
[2023-03-14 02:18] LABS: Glucose,Whole Blood 138 mg/dL (70-110)
[2023-03-14 03:27] LABS: Glucose,Whole Blood 161 mg/dL (70-110)
[2023-03-14 04:05] LABS: Glucose,Whole Blood 166 mg/dL (70-110)
[2023-03-14 04:26] LABS: African American GFR (CKD) >90 (>60 ml/min/1.73 sqM); Anion Gap 11 mmol/L; Blood Urea Nitrogen 9 mg/dL (7-17); Carbon Dioxide 17 mmol/L (22-30); Chloride 107 mmol/L (98-107); Glucose 174 mg/dL (74-99); Non-African American GFR(CKD) >90 (>60 ml/min/1.73 sqM); Potassium 4.3 mmol/L (3.5-5.1); Sodium 135 mmol/L (137-145)
[2023-03-14] MEDS: D5-0.45% NACL WITH KCL 20MEQ/L 1,000 ML IV SCH (05:22)
[2023-03-14 05:25] LABS: Glucose,Whole Blood 189 mg/dL (70-110)
[2023-03-14 06:20] LABS: Glucose,Whole Blood 160 mg/dL (70-110)
[2023-03-14 06:48] VITALS: RESP 18
[2023-03-14 07:23] LABS: African American GFR (CKD) >90 (>60 ml/min/1.73 sqM); Anion Gap 10 mmol/L; Blood Urea Nitrogen 7 mg/dL (7-17); Calcium 8.8 mg/dL (8.4-10.2); Carbon Dioxide 16 mmol/L (22-30); Chloride 112 mmol/L (98-107); Glucose 138 mg/dL (74-99); Non-African American GFR(CKD) >90 (>60 ml/min/1.73 sqM); Potassium 4.6 mmol/L (3.5-5.1); Sodium 138 mmol/L (137-145)
[2023-03-14 07:41] LABS: Glucose,Whole Blood 87 mg/dL (70-110)
[2023-03-14 08:15] LABS: Glucose,Whole Blood 83 mg/dL (70-110)
[2023-03-14 08:53] LABS: Glucose,Whole Blood 83 mg/dL (70-110)
[2023-03-14] MEDS ORDERED: ENOXAPARIN 40 MG/0.4 ML SYRINGE SQ SCH (09:00)
[2023-03-14 09:08] LABS: % Iron Saturation 7.63 (12.00-45.00); Ferritin 9.5 ng/mL (10.0-291.0); Iron 30 UG/DL (50-170); Total Iron Binding Capacity 393 UG/DL (228-460)
[2023-03-14 09:44] LABS: Glucose,Whole Blood 108 mg/dL (70-110)
[2023-03-14] MEDS ORDERED: INSULIN DETEMIR (LEVEMIR) 100 UNIT/ML SYR SQ ONE (10:34)
[2023-03-14 12:19] LABS: Glucose,Whole Blood 154 mg/dL (70-110)
[2023-03-14] MEDS: INSULIN ASPART (NovoLOG) 100 UNIT/ML VIAL SQ SCH ×2 (12:23→17:23)
--- NOTE | 2023-03-14 13:37 | P.PN ---
Subjective Progress Note Date: 03/14/23 Hospital Course: 27-year-old female with a PMH of type I DM who presents to the emergency room with complaints of dizziness, nausea, and chest tightness. EKG in the emergency room revealed sinus rhythm at [address]/T-wave changes noted as reviewed by me. Laboratory evaluation revealed a glucose of 391 with CO2 9, ABG pH 7.21, and anion gap 21 with 4+ ketones in the urine. Furthermore MCV was 72.3. Patient claims that she is compliant with her insulin therapy. Sees an en docrinologist. Anion gap has closed, nausea improved, insulin drip turned off. Patient started on subcutaneous insulin. Subjective: Seen and examined at bedside. No acute events overnight., Nausea is improved. Pertinent positives and negatives as discussed above, a complete review of systems was performed and all other systems are negative. Vitals Signs Reviewed. General: nontoxic, no distress, appears at stated age Derm: warm, dry Head: atraumatic, normocephalic, symmetric Eyes: EOMI, no lid lag, anicteric sclera Mouth: no lip lesion, mucus membranes moist Cardiovascular: S1S2 reg, no murmur Lungs: CTA bilateral, no rhonchi, no rales , no accessory muscle use Abdominal: soft, nontender to palpation, no guarding, no appreciable organomegaly Ext: no gross muscle atrophy, no edema, no contractures Neuro: CN II-XI grossly intact, no focal neuro deficits Psych: Alert, oriented, appropriate affect Data Reviewed Today: Pertinent Labs: Sodium 138, potassium 4.6, bicarb 16, creatinine 0.47, iron 30, TIBC 393, percent saturation 7.6, glucose range between 87-166 Imaging: No new imaging Assessment and Plan: Type 1 diabetes, uncontrolled Diabetic ketoacidosis, resolved Hypokalemia, resolved Iron deficiency -Started on Levemir 20 units daily, sliding scale insulin -Repeat BMP tomorrow -A1c ordered -Repeat CBC tomorrow, patient may need oral iron DVT ppx: Lovenox Code status: Full code Anticipated discharge place: Home Anticipated discharge time: Tomorrow Objective - Vital Signs Vital signs: Vital Signs Temp 98.9 F 03/14/23 06:47 Pulse 70 03/14/23 06:47 Resp 18 03/14/23 06:47 BP 122/82 03/14/23 06:47 Pulse Ox 99 03/14/23 06:47 FiO2 Intake & Output 03/13/23 03/14/23 03/14/23 18:59 06:59 18:59 Intake Total 23.765 16.647 Balance .765 16.647 Weight 71.668 kg Intake: Intake, IV Titration 23.765 16.647 Amount Insulin Regular 100 unit 23.765 16.647 In Sodium Chloride 0.9% 100 ml @ 0.1 UNITS/KG/HR 7.238 mls/hr IV .[id number] [facility] Rx#:[id number] - Labs CBC & Chem 7: 03/13/23 14:51 03/14/23 06:25 Labs: Abnormal Lab Results - Last 24 Hours (Table) 03/13/23 03/13/23 03/13/23 Range/Units 14:39 14:51 14:51 MCV 72.3 L (80.0-100.0) fL MCH 22.8 L (25.0-35.0) pg VBG pH (7.31-7.41) VBG HCO3 (24-28) mmol/L Sodium 131 L (137-145) mmol/L Potassium (3.5-5.1) mmol/L Chloride (98-107) mmol/L Carbon Dioxide 9 L* (22-30) mmol/L BUN 18 H (7-17) mg/dL Creatinine (0.52-1.04) mg/dL Glucose 391 H (74-99) mg/dL POC Glucose (mg/dL) 393 H (70-110) mg/dL Iron (50-170) UG/DL % Saturation (12.00-45.00) Ferritin (10.0-291.0) ng/mL Total Protein 9.0 H (6.3-8.2) g/dL Albumin 5.1 H (3.5-5.0) g/dL Urine Glucose (UA) (Negative) Urine Ketones (Negative) 03/13/23 03/13/23 03/13/23 Range/Units 17:58 19:45 21:33 MCV (80.0-100.0) fL MCH (25.0-35.0) pg VBG pH 7.21 L (7.31-7.41) VBG HCO3 15 L (24-28) mmol/L Sodium (137-145) mmol/L Potassium (3.5-5.1) mmol/L Chloride (98-107) mmol/L Carbon Dioxide (22-30) mmol/L BUN (7-17) mg/dL Creatinine (0.52-1.04) mg/dL Glucose (74-99) mg/dL POC Glucose (mg/dL) 230 H (70-110) mg/dL Iron (50-170) UG/DL % Saturation (12.00-45.00) Ferritin (10.0-291.0) ng/mL Total Protein (6.3-8.2) g/dL Albumin (3.5-5.0) g/dL Urine Glucose (UA) 4+ H (Negative) Urine Ketones 4+ H (Negative) 03/13/23 03/14/23 03/14/23 Range/Units 22:48 00:16 01:04 MCV (80.0-100.0) fL MCH (25.0-35.0) pg VBG pH (7.31-7.41) VBG HCO3 (24-28) mmol/L Sodium (137-145) mmol/L Potassium (3.5-5.1) mmol/L Chloride (98-107) mmol/L Carbon Dioxide (22-30) mmol/L BUN (7-17) mg/dL Creatinine (0.52-1.04) mg/dL Glucose (74-99) mg/dL POC Glucose (mg/dL) 221 H 178 H 161 H (70-110) mg/dL Iron (50-170) UG/DL % Saturation (12.00-45.00) Ferritin (10.0-291.0) ng/mL Total Protein (6.3-8.2) g/dL Albumin (3.5-5.0) g/dL Urine Glucose (UA) (Negative) Urine Ketones (Negative) 03/14/23 03/14/23 03/14/23 Range/Units 01:06 02:14 03:25 MCV (80.0-100.0) fL MCH (25.0-35.0) pg VBG pH (7.31-7.41) VBG HCO3 (24-28) mmol/L Sodium 135 L (137-145) mmol/L Potassium 3.3 L (3.5-5.1) mmol/L Chloride 108 H (98-107) mmol/L Carbon Dioxide 17 L (22-30) mmol/L BUN (7-17) mg/dL Creatinine 0.42 L (0.52-1.04) mg/dL Glucose 149 H (74-99) mg/dL POC Glucose (mg/dL) 138 H 161 H (70-110) mg/dL Iron (50-170) UG/DL % Saturation (12.00-45.00) Ferritin (10.0-291.0) ng/mL Total Protein (6.3-8.2) g/dL Albumin (3.5-5.0) g/dL Urine Glucose (UA) (Negative) Urine Ketones (Negative) 03/14/23 03/14/23 03/14/23 Range/Units 03:59 04:01 05:16 MCV (80.0-100.0) fL MCH (25.0-35.0) pg VBG pH (7.31-7.41) VBG HCO3 (24-28) mmol/L Sodium 135 L (137-145) mmol/L Potassium (3.5-5.1) mmol/L Chloride (98-107) mmol/L Carbon Dioxide 17 L (22-30) mmol/L BUN (7-17) mg/dL Creatinine 0.50 L (0.52-1.04) mg/dL Glucose 174 H (74-99) mg/dL POC Glucose (mg/dL) 166 H 189 H (70-110) mg/dL Iron 30 L (50-170) UG/DL % Saturation 7.63 L (12.00-45.00) Ferritin 9.5 L (10.0-291.0) ng/mL Total Protein (6.3-8.2) g/dL Albumin (3.5-5.0) g/dL Urine Glucose (UA) (Negative) Urine Ketones (Negative) 03/14/23 03/14/23 03/14/23 Range/Units 06:18 06:25 12:17 MCV (80.0-100.0) fL MCH (25.0-35.0) pg VBG pH (7.31-7.41) VBG HCO3 (24-28) mmol/L Sodium (137-145) mmol/L Potassium (3.5-5.1) mmol/L Chloride 112 H (98-107) mmol/L Carbon Dioxide 16 L (22-30) mmol/L BUN (7-17) mg/dL Creatinine 0.47 L (0.52-1.04) mg/dL Glucose 138 H (74-99) mg/dL POC Glucose (mg/dL) 160 H 154 H (70-110) mg/dL Iron (50-170) UG/DL % Saturation (12.00-45.00) Ferritin (10.0-291.0) ng/mL Total Protein (6.3-8.2) g/dL Albumin (3.5-5.0) g/dL Urine Glucose (UA) (Negative) Urine Ketones (Negative)
[2023-03-14 14:01] VITALS: TEMP 98.1
[2023-03-14 17:05] LABS: Glucose,Whole Blood 335 mg/dL (70-110)
[2023-03-14 17:30] VITALS: BP 129/99; PULSE 98
[2023-03-14] MEDS ORDERED: METOCLOPRAMIDE 10 MG TAB PO SCH (21:00)
[2023-03-15] MEDS ORDERED: INSULIN DETEMIR (LEVEMIR) 100 UNIT/ML SYR SQ SCH (07:00)
--- NOTE | 2023-03-15 08:09 | P.DS ---
Providers Date of admission: 03/13/23 21:42 Expected date of discharge: 03/15/23 Attending physician: Patience Bone MD Primary care physician: Wayne Ramirez [facility] Course: Patient admitted for DKA. Left against medical advice yesterday 03/15/23. Patient Condition at Discharge: Undetermined Plan - Discharge Summary New Discharge Prescriptions: No Action Venlafaxine HCl [Effexor XR] 75 mg PO DAILY INSULIN LISPRO (HumaLOG) [humaLOG] See Protocol SQ TID-W/MEALS Insulin Glargine [Lantus Vial] 22 unit SQ DAILY Glucagon [Gvoke Pfs 1-Pack Syringe] 1 mg SQ ONCE PRN PRN Reason: Hypoglycemia Naltrexone HCl [Revia] 50 mg PO DAILY Montelukast [Singulair] 10 mg PO DAILY Metoclopramide [Reglan] 10 mg PO BID Discharge Medication List Glucagon [Gvoke Pfs 1-Pack Syringe] 1 mg SQ ONCE PRN 02/11/23 [History] INSULIN LISPRO (HumaLOG) [humaLOG] See Protocol SQ TID-W/MEALS 02/11/23 [History] Insulin Glargine [Lantus Vial] 22 unit SQ DAILY 02/11/23 [History] Montelukast [Singulair] 10 mg PO DAILY 02/11/23 [History] Naltrexone HCl [Revia] 50 mg PO DAILY 02/11/23 [History] Venlafaxine HCl [Effexor XR] 75 mg PO DAILY 02/11/23 [History] Metoclopramide [Reglan] 10 mg PO BID 03/13/23 [History] Follow up Appointment(s)/Referral(s): Wayne Ramirez DO [Primary Care Provider] - 1-2 days Discharge Disposition: LEFT AGAINST MEDICAL ADVICE
[2023-03-15] MEDS ORDERED: VENLAFAXINE HCL ER 75 MG CAP PO SCH (09:00)
[2023-03-15] MEDS ORDERED: MONTELUKAST 10 MG TAB PO SCH (09:00)
[2023-03-15] MEDS ORDERED: NALTREXONE HCL 50 MG TAB PO SCH (09:00)
== END 2023-03-14 17:52 | disposition left against medical advice (07) | DRG 420 ==
LOC: EC 14:03 → 3SCARD 21:42 → 5NMEDONC 03-14 15:12
PROVIDERS: ADMIT Internal Medicine; ATTEND Internal Medicine
DX: E10.10 Type 1 diabetes mellitus with ketoacidosis without coma (principal); Z53.29 Procedure and treatment not carried out because of patient's decision for other reasons; F17.290 Nicotine dependence, other tobacco product, uncomplicated; E61.1 Iron deficiency; F32.A Depression, unspecified; E87.6 Hypokalemia; Z79.4 Long term (current) use of insulin; Z79.899 Other long term (current) drug therapy; Z88.6 Allergy status to analgesic agent; Z88.0 Allergy status to penicillin; Z88.2 Allergy status to sulfonamides; Z88.8 Allergy status to other drugs, medicaments and biological substances; Z86.59 Personal history of other mental and behavioral disorders; Z88.7 Allergy status to serum and vaccine
CPT/HCPCS: 36415; 80048; 80051; 80053; 81003; 82565; 82728; 82803; 82947; 83036; 83540; 83550; 84100; 84484; 84520; 85025; 85610; 93005; 96361; 96365; 99291

== ENCOUNTER 2023-08-07 14:14 | Emergency (ER) | payer OTHER ==
[2023-08-07 15:09] VITALS: TEMP 98
--- NOTE | 2023-08-07 16:28 | XR ---
EXAMINATION TYPE: XR elbow complete RT DATE OF EXAM: 08/07/2023 3:35 PM CLINICAL INDICATION:Female, 27 years old with history of pain/swelling; PHH COMPARISON: None TECHNIQUE: XR elbow complete RT; elbow was examined in AP, lateral, and oblique projections. FINDINGS: No evidence of any acute osseous pathology, joint dislocation, or soft tissue swelling is n oted. No evidence of joint effusion is present. IMPRESSION: No evidence of acute fracture.
--- NOTE | 2023-08-07 16:44 | ED ---
Extremity Problem HPI - General Chief complaint: Extremity Problem,Nontraumatic Stated complaint: R Elbow Pain Time Seen by Provider: 08/07/23 15:31 Source: patient Mode of arrival: ambulatory Limitations: no limitations - History of Present Illness Initial comments: A 27-year-old female presenting to the ED with a chief complaint of right elbow pain. Patient states 2 days ago started to experience the right elbow pain while at rest. 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 Denies fever. No concern for STD. No other complaints. - Related Data Home Medications Medication Instructions Recorded Confirmed Glucagon [Gvoke Pfs 1-Pack Syringe] 1 mg SQ ONCE PRN 02/11/23 05/20/23 INSULIN LISPRO (HumaLOG) [humaLOG] See Protocol SQ TID-W/MEALS 02/11/23 05/20/23 Insulin Glargine [Lantus Vial] 22 unit SQ DAILY 02/11/23 05/20/23 Montelukast [Singulair] 10 mg PO DAILY 02/11/23 05/20/23 Naltrexone HCl [Revia] 50 mg PO DAILY 02/11/23 05/20/23 Venlafaxine HCl [Effexor XR] 75 mg PO DAILY 02/11/23 05/20/23 Metoclopramide [Reglan] 10 mg PO TID PRN 03/13/23 05/20/23 Previous Rx's Medication Instructions Recorded Acetaminophen Tab [Tylenol] 650 mg PO Q6H #30 tab 08/07/23 Ibuprofen [Motrin] 600 mg PO Q8HR PRN #30 tab 08/07/23 Allergies Allergy/AdvReac Type Severity Reaction Status Date / Time clonazepam [From Klonopin] AdvReac Hallucinati Verified 08/07/23 15:02 ons Influenza Virus Vaccines AdvReac Unknown Verified 08/07/23 15:02 Penicillins AdvReac Unknown Verified 08/07/23 15:02 sulfamethoxazole AdvReac Nausea & Verified 08/07/23 15:02 [From Bactrim] Vomiting trimethoprim [From Bactrim] AdvReac Nausea & Verified 08/07/23 15:02 Vomiting benadry AdvReac Vomiting Uncoded 08/07/23 15:02 Review of Systems ROS Statement: Those systems with pertinent positive or pertinent negative responses have been documented in the HPI. ROS Other: All systems not noted in ROS Statement are negative. Past Medical History Past Medical History: Diabetes Mellitus Additional Past Medical History / Comment(s): alcohol and substance abuse(recovery), type 1 diabetes History of Any Multi-Drug Resistant Organisms: None Reported Past Surgical History: No Surgical Hx Reported Past Psychological History: Depression Smoking Status: Vaper Past Alcohol Use History: None Reported Past Drug Use History: Cocaine, Prescription Drug Abuse - Past Family History Mother Family Medical History: Hyperlipidemia General Exam Limitations: no limitations General appearance: alert, in no apparent distress Neck exam: Present: normal inspection Respiratory exam: Present: normal lung sounds bilaterally Cardiovascular Exam: Present: regular rate, normal rhythm GI/Abdominal exam: Present: soft Extremities exam: Present: other (Strength and Sensation equal and intact of bilateral upper extremities. Radial pulses 2+. Able to actively fully range the elbow without significant difficulties. No other skin changes. No warmth, erythema, edema. Tenderness to palpation at the lateral aspect of the right elbow. Not) Neurological exam: Present: alert, oriented X3 Skin exam: Present: warm, dry Course Vital Signs 08/07/23 08/07/23 14:59 16:43 Temperature 98 F 98 F Pulse Rate 100 92 Respiratory 18 16 Rate Blood Pressure 116/78 115/76 O2 Sat by Pulse 98 99 Oximetry Medical Decision Making - Medical Decision Making Was pt. sent in by a medical professional or institution ([facility]fer, [employer], urgent care, hospital, or retirement...) When possible be specific @ -No Did you speak to anyone other than the patient for history (EMS, parent, family, police, friend...)? What history was obtained from this source @ -No Did you review nursing and triage notes (agree or disagree)? Why? @ -I reviewed and agree with nursing and triage notes Were old charts reviewed (outside hosp., previous admission, EMS record, old EKG, old radiological studies, urgent care reports/EKG's, retirement records)? Report findings @ -No old charts were reviewed Differential Diagnosis (chest pain, altered mental status, abdominal pain women, abdominal pain men, vaginal bleeding, weakness, fever, dyspnea, syncope, headache, dizziness, GI bleed, back pain, seizure, CVA, palpatations, mental health, musculoskeletal)? @ -Differential Musculoskeletal Muscular strain, contusion, ligament sprain, fracture, arthritis, septic arthritis, bursitis, cellulitis, muscle spasm, nerve compression, DVT, arterial occlusion, herpes zoster, electrolyte abnormality, tumor.... This is not meant to be in all inclusive list EKG interpreted by me (3pts min.). @ -None X-rays interpreted by me (1pt min.). @ -X-ray of the right elbow interpreted by me showing no fracture or other acute finding. CT interpreted by me (1pt min.). @ -None done U/S interpreted by me (1pt. min.). @ -None done What testing was considered but not performed or refused? (CT, X-rays, U/S, labs)? Why? @ -None What meds were considered but not given or refused? Why? @ -None Did you discuss the management of the patient with other professionals (professionals i.e. , PA, [employer], lab, RT, psych nurse, social work administrator, finishing range supervisor, teacher, humane officer, catalytic case operator)? Give summary @ -No Was smoking cessation discussed for >3mins.? @ -No Was critical care preformed (if so, how long)? @ -No Were there social determinants of health that impacted care today? How? (Ho melessness, low income, unemployed, alcoholism, drug addiction, transportation, low edu. Level, literacy, decrease access to med. care, care home, rehab)? @ -No Was there de-escalation of care discussed even if they declined (Discuss DNR or withdrawal of care, Hospice)? DNR status @ -No What co-morbidities impacted this encounter? (DM, HTN, Smoking, COPD, CAD, Cancer, CVA, ARF, Chemo, Hep., AIDS, mental health diagnosis, sleep apnea, morbid obesity)? @ -None Was patient admitted / discharged? Hospital course, mention meds given and route, prescriptions, significant lab abnormalities, going to OR and other pertinent info. @ -Discharge 27-year-old female presenting to the ED with atraumatic right elbow pain. Imaging shows no acute findings. At this time vital signs stable afebrile. Symptoms likely muscular skeletal nature. Advised follow-up with her primary care provider. Discussed cost return precautions with patient who verbalizes agreement. Undiagnosed new problem with uncertain prognosis? @ -No Drug Therapy requiring intensive monitoring for toxicity (Heparin, Nitro, Insulin, Cardizem)? @ -No Were any procedures done? @ -No Diagnosis/symptom? @ -Right elbow pain Acute, or Chronic, or Acute on Chronic? @ -Acute Uncomplicated (without systemic symptoms) or Complicated (systemic symptoms)? @ -Uncomplicated Side effects of treatment? @ -No Exacerbation, Progression, or Severe Exacerbation? @ -No Poses a threat to life or bodily function? How? (Chest pain, [place], [place], pneumonia, PE, COPD, DKA, ARF, appy, cholecystitis, CVA, Diverticulitis, Homicidal, Suicidal, threat to staff... and all critical care pts) @ -No Disposition Clinical Impression: Elbow pain Disposition: HOME SELF-CARE Condition: Good Additional Instructions: Please return to the Emergency Department if symptoms worsen or any other concerns. Please follow-up with your primary care provider. Prescriptions: Ibuprofen [Motrin] 600 mg PO Q8HR PRN #30 tab PRN Reason: Pain Acetaminophen Tab [Tylenol] 650 mg PO Q6H #30 tab Is patient prescribed a controlled substance at d/c from ED?: No Referrals: Wayne Ramirez DO [Primary Care Provider] - 1-2 days
[2023-08-07] MEDS ORDERED: KETOROLAC 15 MG/ML 1 ML VIAL IM STA (16:49)
[2023-08-07 17:05] VITALS: BP 115/76; PULSE 92; RESP 16
== END 2023-08-07 16:56 | disposition home or self-care (01) ==
LOC: EC 14:14
DX: M25.521 Pain in right elbow (principal); E11.9 Type 2 diabetes mellitus without complications; F32.A Depression, unspecified; F17.290 Nicotine dependence, other tobacco product, uncomplicated; Z88.7 Allergy status to serum and vaccine; Z88.2 Allergy status to sulfonamides; Z88.8 Allergy status to other drugs, medicaments and biological substances; Z88.0 Allergy status to penicillin; Z79.4 Long term (current) use of insulin; Z79.899 Other long term (current) drug therapy
CPT/HCPCS: 73080; 99283; 96372; J1885

== ENCOUNTER 2023-10-12 19:29 | Emergency (ER) | payer OTHER ==
--- NOTE | 2023-10-12 19:59 | ED ---
Extremity Problem HPI - General Source: patient, RN notes reviewed <Kerry Gardner - Last Filed: 10/12/23 19:58> <Zoila Noel - Last Filed: 10/13/23 05:29> - General Stated complaint: Pain in R wrist Time Seen by Provider: 10/12/23 19:58 - History of Present Illness Initial comments: Patient is a 27-year-old female presented to ER with chief complaint of right shoulder pain. Patient believes she has rotator cuff injury and is having difficulties getting into PT due to working. Denies any known new injuries or traumas. (Kerry Gardner) 27-year-old female presenting with chief complaint of right-sided shoulder pain. She believes that she may have injured her rotator cuff a few days ago. She had no obvious injury but felt a popping sensation while getting dressed. She is having a difficult time getting into see her doctor due to her work schedule. No numbness tingling or weakness. (Zoila Noel) - Related Data Home Medications Medication Instructions Recorded Confirmed Glucagon [Gvoke Pfs 1-Pack Syringe] 1 mg SQ ONCE PRN 02/11/23 05/20/23 INSULIN LISPRO (HumaLOG) [humaLOG] See Protocol SQ TID-W/MEALS 02/11/23 05/20/23 Insulin Glargine [Lantus Vial] 22 unit SQ DAILY 02/11/23 05/20/23 Montelukast [Singulair] 10 mg PO DAILY 02/11/23 05/20/23 Naltrexone HCl [Revia] 50 mg PO DAILY 02/11/23 05/20/23 Venlafaxine HCl [Effexor XR] 75 mg PO DAILY 02/11/23 05/20/23 Metoclopramide [Reglan] 10 mg PO TID PRN 03/13/23 05/20/23 Previous Rx's Medication Instructions Recorded Acetaminophen Tab [Tylenol] 650 mg PO Q6H #30 tab 08/07/23 Ibuprofen [Motrin] 600 mg PO Q8HR PRN #30 tab 08/07/23 Allergies Allergy/AdvReac Type Severity Reaction Status Date / Time clonazepam [From Klonopin] AdvReac Hallucinati Verified 10/12/23 20:26 ons Influenza Virus Vaccines AdvReac Unknown Verified 10/12/23 20:26 Penicillins AdvReac Unknown Verified 10/12/23 20:26 sulfamethoxazole AdvReac Nausea & Verified 10/12/23 20:26 [From Bactrim] Vomiting trimethoprim [From Bactrim] AdvReac Nausea & Verified 10/12/23 20:26 Vomiting benadry AdvReac Vomiting Uncoded 10/12/23 20:26 Review of Systems ROS Other: All systems not noted in ROS Statement are negative. <Kerry Gardner - Last Filed: 10/12/23 19:58> ROS Other: All systems not noted in ROS Statement are negative. <Zoila Noel - Last Filed: 10/13/23 05:29> ROS Statement: Those systems with pertinent positive or pertinent negative responses have been documented in the HPI. Past Medical History Past Medical History: Diabetes Mellitus Additional Past Medical History / Comment(s): alcohol and substance abuse(recovery), type 1 diabetes History of Any Multi-Drug Resistant Organisms: None Reported Past Surgical History: No Surgical Hx Reported Past Psychological History: Depression Smoking Status: Vaper Past Alcohol Use History: None Reported Past Drug Use History: Cocaine, Prescription Drug Abuse - Past Family History Mother Family Medical History: Hyperlipidemia <Kerry Gardner - Last Filed: 10/12/23 19:58> General Exam <Kerry Gardner - Last Filed: 10/12/23 19:58> Limitations: no limitations General appearance: alert, in no apparent distress Head exam: Present: atraumatic, normocephalic Eye exam: Present: normal appearance Neck exam: Present: normal inspection Respiratory exam: Absent: respiratory distress Cardiovascular Exam: Present: regular rate Right Shoulder Exam: Present: normal inspection, tenderness. Absent: full ROM (Secondary to pain), swelling, deformity Vascular: Absent: vascular compromise Neurological exam: Present: alert, oriented X3 Psychiatric exam: Present: normal affect, normal mood Skin exam: Present: warm, dry <Zoila Noel - Last Filed: 10/13/23 05:29> - General Exam Comments Initial Comments: Visual Physical Exam General: Well-appearing, nontoxic, no acute distress. Head: Normocephalic, atraumatic Eyes: PERRLA, EOMI ENT: Airway patent Chest: Nonlabored breathing Skin: No visual rash, normal skin tone Neuro: Alert and oriented 3 Musculoskeletal: No gross abnormalities (Kerry Gardner) Course Vital Signs 10/12/23 20:24 Temperature 98 F Pulse Rate 97 Respiratory 18 Rate Blood Pressure 135/83 O2 Sat by Pulse 99 Oximetry Medical Decision Making <Kerry Gardner - Last Filed: 10/12/23 19:58> <Zoila Noel - Last Filed: 10/13/23 05:29> - Medical Decision Making I performed the quick note portion of this chart. Electronically signed by Kerry Gardner PA-C (Kerry Gardner) Was pt. sent in by a medical professional or institution (JUNIE Shafer, SENIOR PROCESS CONTROL TECH, urgent care, hospital, or snf...) When possible be specific @ -No Did you speak to anyone other than the patient for history (EMS, parent, family, police, friend...)? What history was obtained from this source @ -No Did you review nursing and triage notes (agree or disagree)? Why? @ -I reviewed and agree with nursing and triage notes Were old charts reviewed (outside hosp., previous admission, EMS record, old EKG, old radiological studies, urgent care reports/EKG's, snf records)? Report findings @ -No old charts were reviewed Differential Diagnosis (chest pain, altered mental status, abdominal pain women, abdominal pain men, vaginal bleeding, weakness, fever, dyspnea, syncope, headache, dizziness, GI bleed, back pain, seizure, CVA, palpatations, mental health, musculoskeletal)? @ -Differential Musculoskeletal Muscular strain, contusion, ligament sprain, fracture, arthritis, septic arthr itis, bursitis, cellulitis, muscle spasm, nerve compression, DVT, arterial occlusion, herpes zoster, electrolyte abnormality, tumor.... This is not meant to be in all inclusive list EKG interpreted by me (3pts min.). @ -As above X-rays interpreted by me (1pt min.). @ -X-ray shows no acute osseous pathology CT interpreted by me (1pt min.). @ -None done U/S interpreted by me (1pt. min.). @ -None done What testing was considered but not performed or refused? (CT, X-rays, U/S, labs)? Why? @ -None What meds were considered but not given or refused? Why? @ -None Did you discuss the management of the patient with other professionals (professionals i.e. DrMaría, PA, SENIOR PROCESS CONTROL TECH, lab, RT, psych nurse, child welfare social worker, supervisor intermediates, teacher, activities officer, keycase assembler)? Give summary @ -No Was smoking cessation discussed for >3mins.? @ -No Was critical care preformed (if so, how long)? @ -No Were there social determinants of health that impacted care today? How? (Homelessness, low income, unemployed, alcoholism, drug addiction, transportation, low edu. Level, literacy, decrease access to med. care, correction, rehab)? @ -No Was there de-escalation of care discussed even if they declined (Discuss DNR or withdrawal of care, Hospice)? DNR status @ -No What co-morbidities impacted this encounter? (DM, HTN, Smoking, COPD, CAD, Cancer, CVA, ARF, Chemo, Hep., AIDS, mental health diagnosis, sleep apnea, morbid obesity)? @ -None Was patient admitted / discharged? Hospital course, mention meds given and route, prescriptions, significant lab abnormalities, going to OR and other pertinent info. @ -27-year-old female present with chief complaint of right shoulder pain. No obvious injury, however patient did feel a popping sensation while getting dressed a few days ago. She is neurovascularly intact. X-ray is negative. She is provided with a sling and orthopedic referral. Discharged home. Follow-up with PCP. Report back to ER with any new or worsening symptoms. Discussed return parameters and answered all questions. Patient conveyed verbal understanding and agreed to the plan. I discussed this case in detail with my attending Dr. Tsang Undiagnosed new problem with uncertain prognosis? @ -No Drug Therapy requiring intensive monitoring for toxicity (Heparin, Nitro, Insulin, Cardizem)? @ -No Were any procedures done? @ -No Diagnosis/symptom? @ -Shoulder strain Acute, or Chronic, or Acute on Chronic? @ -Acute Uncomplicated (without systemic symptoms) or Complicated (systemic symptoms)? @ -Uncomplicated Side effects of treatment? @ -No Exacerbation, Progression, or Severe Exacerbation? @ -No Poses a threat to life or bodily function? How? (Chest pain, USA, SD, pneumonia, PE, COPD, DKA, ARF, appy, cholecystitis, CVA, Diverticulitis, Homicidal, Suicidal, threat to staff... and all critical care pts) @ -No (Zoila Noel) Disposition <Kerry Gardner - Last Filed: 10/12/23 19:58> Is patient prescribed a controlled substance at d/c from ED?: No Time of Disposition: 21:43 <Zoila Noel - Last Filed: 10/13/23 05:29> Clinical Impression: Shoulder sprain Disposition: HOME SELF-CARE Condition: Good Instructions (If sedation given, give patient instructions): Shoulder Sprain (ED) Additional Instructions: Follow-up with orthopedics. Report back to ER with any new or worsening symptoms. Alternate Motrin and Tylenol as needed for pain control. Referrals: Wayne Ramirez DO [Primary Care Provider] - 1-2 days Delano Quiros MD [STAFF PHYSICIAN] - 1-2 days
[2023-10-12 20:53] VITALS: BP 135/83; PULSE 97; RESP 18; TEMP 98
--- NOTE | 2023-10-12 21:11 | XR ---
EXAMINATION TYPE: XR shoulder complete RT DATE OF EXAM: 10/12/2023 8:44 PM CLINICAL INDICATION:Female, 27 years old with history of pain; [facility] COMPARISON: None TECHNIQUE: XR shoulder complete RT; examined in AP, internally rotated and scapular Y projections. FINDINGS: No evidence of acute osseous pathology, joint dislocation, or soft tissue swelling. The remaining po rtions of the visualized chest are unremarkable. IMPRESSION: No acute osseous pathology.
[2023-10-12] MEDS: ACET/COD 300 MG/30 MG STARTER PACK 6 TAB BTL PO STA (22:37)
== END 2023-10-12 22:38 | disposition home or self-care (01) ==
LOC: EC 19:29
DX: S43.401A Unspecified sprain of right shoulder joint, initial encounter (principal); S46.911A Strain of unspecified muscle, fascia and tendon at shoulder and upper arm level, right arm, initial encounter; E10.9 Type 1 diabetes mellitus without complications; F32.A Depression, unspecified; F17.290 Nicotine dependence, other tobacco product, uncomplicated; F19.10 Other psychoactive substance abuse, uncomplicated; F14.90 Cocaine use, unspecified, uncomplicated; Z88.0 Allergy status to penicillin; Z88.1 Allergy status to other antibiotic agents; Z88.2 Allergy status to sulfonamides; Z88.7 Allergy status to serum and vaccine; Z88.8 Allergy status to other drugs, medicaments and biological substances; Z79.899 Other long term (current) drug therapy; X50.9XXA Other and unspecified overexertion or strenuous movements or postures, initial encounter
CPT/HCPCS: 99283

== ENCOUNTER → 2023-10-28 | Outpatient (CLI) | payer OTHER ==
--- NOTE | 2023-10-30 06:07 | MR ---
EXAMINATION TYPE: MR shoulder RT wo con DATE OF EXAM: 10/28/2023 COMPARISON: Right shoulder x-ray October 12, 2023 HISTORY: Right shoulder pain and swelling for 1 month. TECHNIQUE: Multiplanar, multisequence imaging of the right shoulder is performed without contrast. FINDINGS: Rotator Cuff: Intact supraspinatus and infraspinatus tendons. Mild increased signal with adjacent flu id along the course of the supraspinatus tendon. Intact subscapularis tendon. Rotator cuff muscle bul k is preserved. Acromioclavicular Joint: No significant spurring or capsular hypertrophy. Type II downsloping acromio n. Glenohumeral Joint: Small joint effusion. No significant spurring. Labrum: The labrum appears grossly intact given limitation of non-arthrogram study. Biceps Tendon: The long head of biceps is in normal location within bicipital groove. Bone marrow signal: No focal abnormal marrow signal is appreciated. Other: No additional significant abnormality is appreciated. IMPRESSION: Some tendinosis of the supraspinatus tendon. No full-thickness rotator cuff or labral tear is seen.
== END | disposition home or self-care (01) ==
LOC: RADMRIMAIN 15:47
PROVIDERS: ATTEND Family Medicine
DX: M67.813 Other specified disorders of tendon, right shoulder (principal)

== ENCOUNTER 2023-11-18 11:49 | Emergency (ER) | payer OTHER ==
--- NOTE | 2023-11-18 12:19 | ED ---
General Adult HPI - General Chief complaint: Headache Stated complaint: Migraine Time Seen by Provider: 11/18/23 12:02 Source: patient Mode of arrival: ambulatory Limitations: no limitations - History of Present Illness Initial comments: Dictation was produced using [employer] dictation software. please excuse any grammatical, word or spelling errors. Chief Complaint: 28-year-old female presents to the emergency department with headache History of Present Illness: Patient 20-year-old female no significant comorbidities. Patient states that she is here in the emergency department today for evaluation of headache. For the last month or so she is been having headaches that occur approximately every other day. States that it feels like a pressure to her forehead area that radiates to the vertex and occiput. She was seen in urgent care 2 or 3 days ago and was given Toradol with improvement of her symptoms. She was told that if she has another headache that she should go to the emergency department. Patient denies any numbness tingling weakness or paresthesias to the extremities. No vision changes. She does report some sensitivity to light. Denies any difficulties ambulating or perform her activities of daily living. Denies any dysfunction of her extremities. Denies this headache as thunderclap. Denies headache as being a worsening of her life. The ROS documented in this emergency department record has been reviewed and confirmed by me. Those systems with pertinent positive or negative responses have been documented in the HPI. All other systems are other negative and/or noncontributory. - Related Data Home Medications Medication Instructions Recorded Confirmed Montelukast [Singulair] 10 mg PO DAILY 02/11/23 11/18/23 Naltrexone HCl [Revia] 50 mg PO DAILY 02/11/23 11/18/23 Venlafaxine HCl [Effexor XR] 75 mg PO DAILY 02/11/23 11/18/23 Metoclopramide [Reglan] 10 mg PO TID PRN 03/13/23 11/18/23 Butalb/Acetaminophen/Caffeine 1 cap PO Q4H PRN 11/18/23 11/18/23 [Fioricet 50-300-40 mg Capsule] INSULIN LISPRO (For Pump) [humaLOG 0.01 units SQ-PUMP CONTINUOUS 11/18/23 11/18/23 (For Pump)] Insulin Glargine,Hum.rec.anlog 1 dose SQ DAILY PRN 11/18/23 11/18/23 [Lantus Solostar Pen] Loratadine [Claritin] 10 mg PO DAILY 11/18/23 11/18/23 Ondansetron Odt [Zofran Odt] 4 mg PO Q8HR PRN 11/18/23 11/18/23 Allergies Allergy/AdvReac Type Severity Reaction Status Date / Time clonazepam [From Klonopin] AdvReac Hallucinati Verified 11/18/23 11:56 ons Influenza Virus Vaccines AdvReac Unknown Verified 11/18/23 11:56 Penicillins AdvReac Unknown Verified 11/18/23 11:56 sulfamethoxazole AdvReac Nausea & Verified 11/18/23 11:56 [From Bactrim] Vomiting trimethoprim [From Bactrim] AdvReac Nausea & Verified 11/18/23 11:56 Vomiting benadry AdvReac Vomiting Uncoded 11/18/23 11:56 Review of Systems ROS Statement: Those systems with pertinent positive or pertinent negative responses have been documented in the HPI. ROS Other: All systems not noted in ROS Statement are negative. Past Medical History Past Medical History: Diabetes Mellitus Additional Past Medical History / Comment(s): alcohol and substance abuse(recovery), type 1 diabetes History of Any Multi-Drug Resistant Organisms: None Reported Past Surgical History: No Surgical Hx Reported Past Psychological History: Depression Smoking Status: Vaper Past Alcohol Use History: None Reported Past Drug Use History: Cocaine, Prescription Drug Abuse - Past Family History Mother Family Medical History: Hyperlipidemia General Exam - General Exam Comments Initial Comments: PHYSICAL EXAM: General Impression: Alert and oriented x3, not in acute distress HEENT: Normocephalic atraumatic, extra-ocular movements intact, pupils equal and reactive to light bilaterally, mucous membranes moist. Cardiovascular: Heart regular rate and rhythm Chest: Able to complete full sentences, no retractions, no tachypnea Abdomen: abdomen soft, non-tender, non-distended, no organomegaly Musculoskeletal: Pulses present and equal in all extremities, no peripheral edema Motor: no focal deficits noted Neurological: CN II-XII grossly intact, no focal motor or sensory deficits noted Skin: Intact with no visualized rashes Psych: Normal affect and mood Limitations: no limitations Course Vital Signs 11/18/23 11/18/23 11:52 11:55 Temperature 97.9 F Pulse Rate 89 68 Respiratory 15 16 Rate Blood Pressure 124/79 119/67 O2 Sat by Pulse 100 96 Oximetry Medical Decision Making - Medical Decision Making Was pt. sent in by a medical professional or institution (, JUNIE, AIRCRAFT INSTRUMENT ENGINEER, urgent care, hospital, or halfway...) When possible be specific @ -No Did you speak to anyone other than the patient for history (EMS, parent, family, police, friend...)? What history was obtained from this source @ -No Did you review nursing and triage notes (agree or disagree)? Why? @ -I reviewed and agree with nursing and triage notes Were old charts reviewed (outside hosp., previous admission, EMS record, old EKG, old radiological studies, urgent care reports/EKG's, halfway records)? Report findings @ -No old charts were reviewed Differential Diagnosis (chest pain, altered mental status, abdominal pain women, abdominal pain men, vaginal bleeding, musculoskeletal, weakness, fever, dyspnea, syncope, headache, dizziness, GI bleed, back pain, seizure, CVA, palpatations, mental health)? @ -Differential Headache: Migraine, tension, cluster, carbon monoxide, central venous thrombosis, pension karma temporal arteritis, acute closure glaucoma, intercranial hemorrhage, mastoiditis, sinusitis, head injury, this is not meant to be an all-inclusive list. EKG interpreted by me (3pts min.). @ -None done X-rays interpreted by me (1pt min.). @ -None done CT interpreted by me (1pt min.). @ -None done U/S interpreted by me (1pt. min.). @ -None done What testing was considered but not performed or refused? (CT, X-rays, U/S, labs)? Why? @ -None What meds were considered but not given or refused? Why? @ -None Did you discuss the management of the patient with other professionals (prof lipscomb i.e. , JUNIE, AIRCRAFT INSTRUMENT ENGINEER, lab, RT, psych nurse, social security assessor, strainer mill operator, teacher, campus security officer, shelter case manager)? Give summary @ -No Was smoking cessation discussed for >3mins.? @ -No Was critical care preformed (if so, how long)? @ -No Were there social determinants of health that impacted care today? How? (Homelessness, low income, unemployed, alcoholism, drug addiction, transportation, low edu. Level, literacy, decrease access to med. care, longterm, rehab)? @ -No Was there de-escalation of care discussed even if they declined (Discuss DNR or withdrawal of care, Hospice)? DNR status @ -No What co-morbidities impacted this encounter? (DM, HTN, Smoking, COPD, CAD, Cancer, CVA, ARF, Chemo, Hep., AIDS, mental health diagnosis, sleep apnea, morbid obesity)? @ -None Was patient admitted / discharged? Hospital course, mention meds given and route, prescriptions, significant lab abnormalities, going to OR and other pertinent info. @ -28-year-old female presents to the emergency department with headache. Vital signs are stable. Physical examination is benign. No neurologic deficits. Patient has no high risk features. CT scan the brain is unremarkable. Patient reevaluated bedside with improvement of her headache after administration of headache cocktail. Patient advised to follow-up with her primary care doctor for further outpatient care of headache. Undiagnosed new problem with uncertain prognosis? @ -No Drug Therapy requiring intensive monitoring for toxicity (Heparin, Nitro, Insulin, Cardizem)? @ -No Were any procedures done? @ -No Diagnosis/symptom? Acute, or Chronic, or Acute on Chronic? Uncomplicated (without systemic symptoms) or Complicated (systemic symptoms)? @ -Headache, no high risk features Side effects of treatment? @ -No Exacerbation, Progression, or Severe Exacerbation? @ -No Poses a threat to life or bodily function? How? (Chest pain, USA, CT, pneumonia, PE, COPD, DKA, ARF, appy, cholecystitis, CVA, Diverticulitis, Homicidal, Suicidal, threat to staff... and all critical care pts) @ -No - Lab Data Lab Results 11/18/23 Range/Units 13:58 Urine HCG, Qual Not Detected (Not Detectd) Disposition Clinical Impression: Headache Disposition: HOME SELF-CARE Condition: Good Instructions (If sedation given, give patient instructions): Acute Headache (ED) Is patient prescribed a controlled substance at d/c from ED?: No Referrals: Wayne Ramirez DO [Primary Care Provider] - 1-2 days Time of Disposition: 14:52
[2023-11-18 12:20] VITALS: TEMP 97.9
[2023-11-18] MEDS: KETOROLAC 15 MG/ML 1 ML VIAL IVP STA (12:47)
[2023-11-18] MEDS: ONDANSETRON 4 MG/2 ML VIAL IVP STA (12:48)
[2023-11-18] MEDS: diphenhydrAMINE 50 MG/ML 1 ML VIAL IVP STA (12:49)
[2023-11-18] MEDS: SODIUM CHLORIDE 0.9% 1,000 ML IV STA (12:49)
[2023-11-18 13:43] VITALS: RESP 16
--- NOTE | 2023-11-18 14:41 | CT ---
EXAMINATION TYPE: CT brain wo con DATE OF EXAM: 11/18/2023 COMPARISON: None INDICATION: migraine DLP: 1079.4 mGycm, Automated exposure control for dose reduction was used. CONTRAST: None CT of the brain is performed utilizing 3 mm thick sections through the posterior fossa and 3 mm thick sections through the remaining calvarium. Study is performed within 24 hours of arrival to the hosp [place]. No abnormal hyperdensity is present to suggest an acute intracranial hemorrhage. No mass lesion is evident. No acute infarcts are evident. Ventricles and sulci are appropriate for the patient age. Paranasal sinuses and mastoid air cells within the [id number] are clear. IMPRESSION: 1. No acute intracranial process. Follow-up MRI can be performed as clinically indicated.
[2023-11-18 15:47] VITALS: BP 112/70; PULSE 64
== END 2023-11-18 15:40 | disposition home or self-care (01) ==
LOC: EC 11:49
DX: R51.9 Headache, unspecified (principal); F17.290 Nicotine dependence, other tobacco product, uncomplicated; F14.90 Cocaine use, unspecified, uncomplicated; Z88.0 Allergy status to penicillin; Z88.1 Allergy status to other antibiotic agents; Z88.7 Allergy status to serum and vaccine; Z88.8 Allergy status to other drugs, medicaments and biological substances; Z88.2 Allergy status to sulfonamides
CPT/HCPCS: 99284 ×2; 96374 ×2; 96375 ×3; 96361 ×2; 81025; 70450; J1200; J2405; J1885

== ENCOUNTER 2024-08-31 15:57 | Emergency (ER) | payer OTHER ==
[2024-08-31 16:05] VITALS: TEMP 98.2
[2024-08-31 16:13] LABS: Glucose,Whole Blood 327 mg/dL (70-110)
--- NOTE | 2024-08-31 16:14 | ED ---
General Adult HPI - General Source: patient, RN notes reviewed Mode of arrival: ambulatory Limitations: no limitations <Josefa Mcadams - Last Filed: 08/31/24 16:10> - General Source: patient, RN notes reviewed, old records reviewed Mode of arrival: ambulatory Limitations: no limitations - History of Present Illness -: days(s) Radiation: non-radiation Severity scale (1-10): 0 Consistency: constant Improves with: none Worsens with: none Associated Symptoms: loss of appetite, malaise, nausea/vomiting, weakness Treatments Prior to Arrival: none <Junito Farmer - Last Filed: 09/02/24 07:48> - General Chief complaint: Dizziness Stated complaint: vomiting and dizzy Time Seen by Provider: 08/31/24 16:05 - History of Present Illness Initial comments: Quick note: 28-year-old female presents to the emergency department for evaluation of overall not feeling well. Patient reports history of diabetes. She states that this morning she woke up and her insulin pump was off. She not es today feeling excessively thirsty. She also admits to nausea and vomiting. She states that she has been sick with a "head cold" for the past 3-4 days. (Josefa Mcadams) This is a 28 female to ER for not feeling with diabetic history. Insulin pump fell off last night. Patient admits to nausea vomiting has been feeling sick for a few days now. No fevers no known sick contacts or travel history (Junito Farmer) - Related Data Home Medications Medication Instructions Recorded Confirmed Montelukast [Singulair] 10 mg PO DAILY 02/11/23 11/18/23 Naltrexone HCl [Revia] 50 mg PO DAILY 02/11/23 11/18/23 Venlafaxine HCl [Effexor XR] 75 mg PO DAILY 02/11/23 11/18/23 Metoclopramide [Reglan] 10 mg PO TID PRN 03/13/23 11/18/23 Butalb/Acetaminophen/Caffeine 1 cap PO Q4H PRN 11/18/23 11/18/23 [Fioricet 50-300-40 mg Capsule] INSULIN LISPRO (For Pump) [humaLOG 0.01 units SQ-PUMP CONTINUOUS 11/18/23 11/18/23 (For Pump)] Insulin Glargine,Hum.rec.anlog 1 dose SQ DAILY PRN 11/18/23 11/18/23 [Lantus Solostar Pen] Loratadine [Claritin] 10 mg PO DAILY 11/18/23 11/18/23 Ondansetron Odt [Zofran Odt] 4 mg PO Q8HR PRN 11/18/23 11/18/23 Previous Rx's Medication Instructions Recorded Ketorolac [Toradol] 10 mg PO Q6HR PRN #15 tab 12/21/23 Ondansetron Odt [Zofran Odt] 4 mg PO Q8HR PRN #15 tab 12/21/23 Allergies Allergy/AdvReac Type Severity Reaction Status Date / Time clonazepam [From Klonopin] AdvReac Hallucinati Verified 08/31/24 16:06 ons Influenza Virus Vaccines AdvReac Unknown Verified 08/31/24 16:06 Penicillins AdvReac Unknown Verified 08/31/24 16:06 sulfamethoxazole AdvReac Nausea & Verified 08/31/24 16:06 [From Bactrim] Vomiting trimethoprim [From Bactrim] AdvReac Nausea & Verified 08/31/24 16:06 Vomiting benadry AdvReac Vomiting Uncoded 08/31/24 16:06 Review of Systems ROS Other: All systems not noted in ROS Statement are negative. <Josefa Mcadams - Last Filed: 08/31/24 16:10> ROS Other: All systems not noted in ROS Statement are negative. <Junito Farmer - Last Filed: 09/02/24 07:48> ROS Statement: Those systems with pertinent positive or pertinent negative responses have been documented in the HPI. Past Medical History Past Medical History: Diabetes Mellitus Additional Past Medical History / Comment(s): alcohol and substance abuse(recovery), type 1 diabetes History of Any Multi-Drug Resistant Organisms: None Reported Past Surgical History: No Surgical Hx Reported Past Psychological History: Depression Smoking Status: Vaper Past Alcohol Use History: None Reported Past Drug Use History: Cocaine, Prescription Drug Abuse - Past Family History Mother Family Medical History: Hyperlipidemia <Josefa Mcadams - Last Filed: 08/31/24 16:10> General Exam Limitations: no limitations <Josefa Mcadams - Last Filed: 08/31/24 16:10> General appearance: alert, in no apparent distress Head exam: Present: atraumatic, normocephalic, normal inspection Eye exam: Present: normal appearance, PERRL, EOMI. Absent: scleral icterus, conjunctival injection, periorbital swelling ENT exam: Present: normal exam, mucous membranes moist Neck exam: Present: normal inspection. Absent: tenderness, meningismus, lymphadenopathy Respiratory exam: Present: normal lung sounds bilaterally. Absent: respiratory distress, wheezes, rales, rhonchi, stridor Cardiovascular Exam: Present: regular rate, normal rhythm, normal heart sounds. Absent: systolic murmur, diastolic murmur, rubs, gallop, clicks GI/Abdominal exam: Present: soft, normal bowel sounds. Absent: distended, tenderness, guarding, rebound, rigid Extremities exam: Present: normal inspection, full ROM, normal capillary refill. Absent: tenderness, pedal edema, joint swelling, calf tenderness Back exam: Present: normal inspection Neurological exam: Present: alert, oriented X3, CN II-XII intact Psychiatric exam: Present: normal affect, normal mood Skin exam: Present: warm, dry, intact, normal color. Absent: rash <Junito Farmer - Last Filed: 09/02/24 07:48> - General Exam Comments Initial Comments: Visual Physical Exam Vital signs reviewed General: Well-appearing, nontoxic, no acute distress. Head: Normocephalic, atraumatic Eyes: PERRLA, EOMI ENT: Airway patent Chest: Nonlabored breathing Skin: No visual rash, normal skin tone Neuro: Alert and oriented 3 Musculoskeletal: No gross abnormalities (KuamandakaJosefa) Course <Junito Farmer - Last Filed: 09/02/24 07:48> Vital Signs 08/31/24 08/31/24 16:02 21:15 Temperature 98.2 F 98.2 F Pulse Rate 92 75 Respiratory 20 18 Rate Blood Pressure 128/78 109/82 O2 Sat by Pulse 99 99 Oximetry - Reevaluation(s) Reevaluation #1: 08/31/24 18:24 Medical records reviewed (Junito Farmer) Reevaluation #2: 08/31/24 18:24 Patient symptoms improving (Junito Farmer) Reevaluation #3: 08/31/24 18:24 Patient informed of results questions answered (Junito Farmer) Reevaluation #4: Was pt. sent in by a medical professional or institution (JUNIE Shafer, HEALTHCARE SCIENCE SPECIALIST, urgent care, hospital, or senior living...) When possible be specific @ -no Did you speak to anyone other than the patient for history (EMS, parent, family, police, friend...)? What history was obtained from this source @ -no Did you review nursing and triage notes (agree or disagree)? Why? @ -agree Are old charts reviewed (outside hosp., previous admission, EMS record, old EKG, old radiological studies, urgent care reports/EKG's, senior living records)? Report findings @ -yes Differential Diagnosis (chest pain, altered mental status, abdominal pain women, abdominal pain men, vaginal bleeding, weakness, fever, dyspnea, syncope, headache, dizziness, GI bleed, back pain, seizure, CVA, palpatations, mental health, musculoskeletal)? @ -prior EKG interpreted by me (3pts min.). @ -no X-rays interpreted by me (1pt min.). @ -no CT interpreted by me (1pt min.). @ -no U/S interpreted by me (1pt. min.). @ -no What testing was considered but not performed or refused? (CT, X-rays, U/S, labs)? Why? @ -none What meds were considered but not given or refused? Why? @ -none Did you discuss the management of the patient with other professionals (professionals i.e. JUNIE Shafer, HEALTHCARE SCIENCE SPECIALIST, lab, RT, psych nurse, social worker health services, barrel lathe operator, teacher, flight communications officer, pillowcase sewer)? Give summary @ -no Was smoking cessation discussed for >3mins.? @ -no Was critical care preformed (if so, how long)? @ -no Were there social determinants of health that impacted care today? How? (Homelessness, low income, unemployed, alcoholism, drug addiction, transportation, low edu. Level, literacy, decrease access to med. care, long term, rehab)? @ -none Was there de-escalation of care discussed even if they declined (Discuss DNR or withdrawal of care, Hospice)? DNR status @ -no What co-morbidities impacted this encounter? (DM, HTN, Smoking, COPD, CAD, Cancer, CVA, ARF, Chemo, Hep., AIDS, mental health diagnosis, sleep apnea, morbid obesity)? @ -none Was patient admitted / discharged? Hospital course, mention meds given and route, prescriptions, significant lab abnormalities, going to OR and other pertinent info. @ - 28 female to ER for evaluation of nausea vomiting dehydration weakness patient given significant hydration here in the ER positive for coronavirus will be discharged home do encourage oral water intake and continue insulin pump Discharge Undiagnosed new problem with uncertain prognosis? @ -no Drug Therapy requiring intensive monitoring for toxicity (Heparin, Nitro, Insulin, Cardizem)? @ -no Were any procedures done? @ -no Diagnosis/symptom? @ -Dehydration pending DKA Acute, or Chronic, or Acute on Chronic? @ -Acute Uncomplicated (without systemic symptoms) or Complicated (systemic symptoms)? @ -Complicated Side effects of treatment? @ -no Exacerbation, Progression, or Severe Exacerbation? @ -exacerbation Poses a threat to life or bodily function? How? (Chest pain, USA, SC, pneumonia, PE, COPD, DKA, ARF, appy, cholecystitis, CVA, Diverticulitis, Homicidal, Suicidal, threat to staff... and all critical care pts) @ -yes DKA (Junito Farmer) Reevaluation #5: Differential Weakness: Hypoglycemia, shock, sepsis, hyponatremia, anemia, infection, SC, ETOH, adverse medicine reaction, overdose, stroke, this is not meant to be an all-inclusive list. (Junito Farmer) Medical Decision Making <Josefa Mcadams - Last Filed: 08/31/24 16:10> - Lab Data Result diagrams: 08/31/24 16:41 08/31/24 16:41 <Junito Farmer - Last Filed: 09/02/24 07:48> - Medical Decision Making Quick note preformed and electronically signed by Josefa Mcadams PA-C (Josefa Mcadams) 28 female to ER for evaluation of nausea vomiting dehydration weakness patient given significant hydration here in the ER positive for coronavirus will be discharged home do encourage oral water intake and continue insulin pump, patient refusing admission (Junito Farmer) - Lab Data Lab Results 08/31/24 08/31/24 08/31/24 Range/Units 16:02 16:41 16:41 WBC 9.4 (3.8-10.6) k/uL RBC 4.91 (3.80-5.40) m/uL Hgb 11.8 (11.4-16.0) gm/dL Hct 36.8 (34.0-46.0) % MCV 74.9 L (80.0-100.0) fL MCH 24.0 L (25.0-35.0) pg MCHC 32.0 (31.0-37.0) g/dL RDW 14.1 (11.5-15.5) % Plt Count 311 (150-450) k/uL MPV 8.2 Neutrophils % 83 % Lymphocytes % 12 % Monocytes % 4 % Eosinophils % 1 % Basophils % 0 % Neutrophils # 7.8 H (1.3-7.7) k/uL Lymphocytes # 1.1 (1.0-4.8) k/uL Monocytes # 0.4 (0-1.0) k/uL Eosinophils # 0.1 (0-0.7) k/uL Basophils # 0.0 (0-0.2) k/uL Hypochromasia Moderate Microcytosis Slight Sodium 138 (137-145) mmol/L Potassium 4.6 (3.5-5.1) mmol/L Chloride 105 (98-107) mmol/L Carbon Dioxide 11 L (22-30) mmol/L Anion Gap 22 mmol/L BUN 17 (7-17) mg/dL Creatinine 0.70 (0.52-1.04) mg/dL Est GFR (CKD-EPI)AfAm >90 (>60 ml/min/1.73 sqM) Est GFR (CKD-EPI)NonAf >90 (>60 ml/min/1.73 sqM) Glucose 310 H (74-99) mg/dL POC Glucose (mg/dL) 327 H (70-110) mg/dL POC Glu [employer] [facility] Calcium 9.8 (8.4-10.2) mg/dL Phosphorus 2.6 (2.5-4.5) mg/dL Magnesium 1.8 (1.6-2.3) mg/dL Total Bilirubin 1.3 (0.2-1.3) mg/dL AST 22 (14-36) U/L ALT 17 (4-34) U/L Alkaline Phosphatase 136 H (38-126) U/L Total Protein 9.0 H (6.3-8.2) g/dL Albumin 5.2 H (3.5-5.0) g/dL Acetone, Qual Negative (Negative) Influenza Type A (PCR) (Not Detectd) Influenza Type B (PCR) (Not Detectd) RSV (PCR) (Not Detectd) SARS-CoV-2 (PCR) (Not Detectd) 08/31/24 Range/Units 16:41 WBC (3.8-10.6) k/uL RBC (3.80-5.40) m/uL Hgb (11.4-16.0) gm/dL Hct (34.0-46.0) % MCV (80.0-100.0) fL MCH (25.0-35.0) pg MCHC (31.0-37.0) g/dL RDW (11.5-15.5) % Plt Count (150-450) k/uL MPV Neutrophils % % Lymphocytes % % Monocytes % % Eosinophils % % Basophils % % Neutrophils # (1.3-7.7) k/uL Lymphocytes # (1.0-4.8) k/uL Monocytes # (0-1.0) k/uL Eosinophils # (0-0.7) k/uL Basophils # (0-0.2) k/uL Hypochromasia Microcytosis Sodium (137-145) mmol/L Potassium (3.5-5.1) mmol/L Chloride (98-107) mmol/L Carbon Dioxide (22-30) mmol/L Anion Gap mmol/L BUN (7-17) mg/dL Creatinine (0.52-1.04) mg/dL Est GFR (CKD-EPI)AfAm (>60 ml/min/1.73 sqM) Est GFR (CKD-EPI)NonAf (>60 ml/min/1.73 sqM) Glucose (74-99) mg/dL POC Glucose (mg/dL) (70-110) mg/dL POC Glu [employer] Calcium (8.4-10.2) mg/dL Phosphorus (2.5-4.5) mg/dL Magnesium (1.6-2.3) mg/dL Total Bilirubin (0.2-1.3) mg/dL AST (14-36) U/L ALT (4-34) U/L Alkaline Phosphatase (38-126) U/L Total Protein (6.3-8.2) g/dL Albumin (3.5-5.0) g/dL Acetone, Qual (Negative) Influenza Type A (PCR) Not Detected (Not Detectd) Influenza Type B (PCR) Not Detected (Not Detectd) RSV (PCR) Not Detected (Not Detectd) SARS-CoV-2 (PCR) Detected A (Not Detectd) Disposition <Josefa Mcadams - Last Filed: 08/31/24 16:10> Is patient prescribed a controlled substance at d/c from ED?: No Time of Disposition: 20:00 <Junito Farmer - Last Filed: 09/02/24 07:48> Clinical Impression: Nausea & vomiting, Dehydration, Coronavirus infection, DKA (diabetic ketoacidosis) Disposition: HOME SELF-CARE Condition: Good Instructions (If sedation given, give patient instructions): Coronavirus Disease 2019 (COVID-19) Referrals: Wayne Ramirez DO [Primary Care Provider] - 1-2 days
[2024-08-31 16:58] LABS: Basophils % (A) 0 %; Eosinophils # (A) 0.1 k/uL (0-0.7); Eosinophils % (A) 1 %; HCT 36.8 % (34.0-46.0); HGB 11.8 gm/dL (11.4-16.0); Hypochromasia Moderate; Lymphocytes # (A) 1.1 k/uL (1.0-4.8); Lymphocytes % (A) 12 %; MCV 74.9 fL (80.0-100.0); Mean Platelet Volume 8.2; Microcytosis Slight; Monocytes # (A) 0.4 k/uL (0-1.0); Monocytes % (A) 4 %; Neutrophils # (A) 7.8 k/uL (1.3-7.7); Neutrophils % (A) 83 %; Platelet Count 311 k/uL (150-450); RBC 4.91 m/uL (3.80-5.40); RDW 14.1 % (11.5-15.5); WBC 9.4 k/uL (3.8-10.6)
[2024-08-31 17:11] LABS: ALT 17 U/L (4-34); AST 22 U/L (14-36); African American GFR (CKD) >90 (>60 ml/min/1.73 sqM); Albumin 5.2 g/dL (3.5-5.0); Alkaline Phosphatase 136 U/L (38-126); Anion Gap 22 mmol/L; Blood Urea Nitrogen 17 mg/dL (7-17); Calcium 9.8 mg/dL (8.4-10.2); Carbon Dioxide 11 mmol/L (22-30); Chloride 105 mmol/L (98-107); Glucose 310 mg/dL (74-99); Magnesium 1.8 mg/dL (1.6-2.3); Non-African American GFR(CKD) >90 (>60 ml/min/1.73 sqM); Phosphorus 2.6 mg/dL (2.5-4.5); Potassium 4.6 mmol/L (3.5-5.1); Sodium 138 mmol/L (137-145); Total Bilirubin 1.3 mg/dL (0.2-1.3)
[2024-08-31 17:34] LABS: Influenza A Not Detected (Not Detectd); Influenza B Not Detected (Not Detectd); RSV Not Detected (Not Detectd)
[2024-08-31] MEDS: LACTATED RINGERS 1,000 ML BAG IV STA (18:05)
[2024-08-31] MEDS: SODIUM CHLORIDE 0.9% 2,000 ML IV STA (18:05)
[2024-08-31] MEDS: ONDANSETRON 4 MG ODT STARTER PACK 2 TAB BTL PO STA (19:51)
[2024-08-31] MEDS: ONDANSETRON 4 MG/2 ML VIAL IVP STA (19:51)
[2024-08-31 21:16] VITALS: BP 109/82; PULSE 75; RESP 18
== END 2024-08-31 21:16 | disposition home or self-care (01) ==
LOC: EC 15:57
DX: U07.1 COVID-19 (principal); E11.10 Type 2 diabetes mellitus with ketoacidosis without coma; E86.0 Dehydration; F17.290 Nicotine dependence, other tobacco product, uncomplicated; Z88.0 Allergy status to penicillin; Z88.7 Allergy status to serum and vaccine; Z88.2 Allergy status to sulfonamides; Z88.1 Allergy status to other antibiotic agents; Z88.8 Allergy status to other drugs, medicaments and biological substances
CPT/HCPCS: 36415; 93005; 80053; 82009; 83735; 84100; 85025; 87636; 99284; 96374; 96361 ×2; J2405; S0119

== ENCOUNTER 2025-01-12 22:08 | Emergency (ER) | payer OTHER ==
[2025-01-12 22:12] VITALS: TEMP 98.3
[2025-01-12 22:31] LABS: Glucose,Whole Blood 132 mg/dL (70-110)
[2025-01-12] MEDS: SODIUM CHLORIDE 0.9% 1,000 ML IV ONE (22:49)
[2025-01-12] MEDS: ONDANSETRON 4 MG/2 ML VIAL IVP STA (22:49)
[2025-01-12 22:56] LABS: Basophils # (A) 0.05 10*3/uL (0.00-0.10); Basophils % (A) 0.5 %; Eosinophils # (A) 0.03 10*3/uL (0.04-0.35); Eosinophils % (A) 0.3 %; HGB 10.1 g/dL (12.0-15.0); Lymphocytes # (A) 1.23 10*3/uL (0.90-5.00); Lymphocytes % (A) 11.9 %; MCH 21.8 pg (27.0-32.0); MCHC 31.6 g/dL (32.0-37.0); Mean Platelet Volume 11.2 fL (9.5-12.2); Monocytes # (A) 0.39 10*3/uL (0.20-1.00); Monocytes % (A) 3.8 %; Neutrophils % (A) 83.2 %; Platelet Count 262 10*3/uL (140-440); RBC 4.64 10*6/uL (4.10-5.20); RDW 16.2 % (11.5-14.5); WBC 10.33 10*3/uL (4.50-10.00)
--- NOTE | 2025-01-12 23:07 | ED ---
General Adult HPI - General Chief complaint: Dizziness Stated complaint: Dizziness Time Seen by Provider: 01/12/25 22:31 Source: patient Mode of arrival: ambulatory Limitations: no limitations - History of Present Illness Initial comments: This patient is a 29-year-old woman who arrives for evaluation of a constellation of symptoms that includes just not feeling well, she states that she is feeling dizzy, she does have mild generalized headache, she started her menstrual cycle 2 weeks early and is having heavier bleeding than usual. She has not been able to sleep the past 2 nights because she just does not feel well. Patient is concerned because she does have history of type 1 diabetes. She has been monitoring her blood sugar and it has been well-controlled, she has not noted fever or chills. Last week she did have sinus symptoms but currently no congestion or cough. She is having some nausea no vomiting. No change in bowel movements or urination Onset/Timin -: days(s) Location: head Radiation: non-radiation Quality: dull Consistency: constant Improves with: none Worsens with: none Associated Symptoms: headaches, nausea/vomiting Treatments Prior to Arrival: none - Related Data Home Medications Medication Instructions Recorded Confirmed Montelukast [Singulair] 10 mg PO DAILY 02/11/23 11/18/23 Naltrexone HCl [Revia] 50 mg PO DAILY 02/11/23 11/18/23 Venlafaxine HCl [Effexor XR] 75 mg PO DAILY 02/11/23 11/18/23 Metoclopramide [Reglan] 10 mg PO TID PRN 03/13/23 11/18/23 Butalb/Acetaminophen/Caffeine 1 cap PO Q4H PRN 11/18/23 11/18/23 [Fioricet 50-300-40 mg Capsule] INSULIN LISPRO (For Pump) [humaLOG 0.01 units SQ-PUMP CONTINUOUS 11/18/23 11/18/23 (For Pump)] Insulin Glargine,Hum.rec.anlog 1 dose SQ DAILY PRN 11/18/23 11/18/23 [Lantus Solostar Pen] Loratadine [Claritin] 10 mg PO DAILY 11/18/23 11/18/23 Ondansetron Odt [Zofran Odt] 4 mg PO Q8HR PRN 11/18/23 11/18/23 Previous Rx's Medication Instructions Recorded Ketorolac [Toradol] 10 mg PO Q6HR PRN #15 tab 12/21/23 Ondansetron Odt [Zofran Odt] 4 mg PO Q8HR PRN #15 tab 12/21/23 Meclizine [Antivert] 25 mg PO BID PRN #10 tab 01/14/25 Ondansetron Odt [Zofran Odt] 4 mg PO Q8HR PRN #20 tab 01/14/25 Allergies Allergy/AdvReac Type Severity Reaction Status Date / Time clonazepam [From Klonopin] AdvReac Hallucinati Verified 01/13/25 23:51 ons Influenza Virus Vaccines AdvReac Unknown Verified 01/13/25 23:51 Penicillins AdvReac Unknown Verified 01/13/25 23:51 sulfamethoxazole AdvReac Nausea & Verified 01/13/25 23:51 [From Bactrim] Vomiting trimethoprim [From Bactrim] AdvReac Nausea & Verified 01/13/25 23:51 Vomiting benadry AdvReac Vomiting Uncoded 01/13/25 23:51 Review of Systems ROS Statement: Those systems with pertinent positive or pertinent negative responses have been documented in the HPI. ROS Other: All systems not noted in ROS Statement are negative. Constitutional: Denies: fever, chills, weakness Eyes: Denies: eye pain, vision change ENT: Denies: throat pain, congestion Respiratory: Denies: cough, dyspnea Cardiovascular: Denies: chest pain, palpitations, edema, syncope Gastrointestinal: Reports: nausea. Denies: abdominal pain, vomiting, diarrhea Genitourinary: Reports: abnormal menses. Denies: dysuria, hematuria Musculoskeletal: Denies: back pain Skin: Denies: rash Neurological: Reports: headache, vertigo. Denies: weakness, numbness, confusion Past Medical History Past Medical History: Diabetes Mellitus Additional Past Medical History / Comment(s): alcohol and substance abuse(recovery), type 1 diabetes, BPD History of Any Multi-Drug Resistant Organisms: None Reported Past Surgical History: No Surgical Hx Reported Past Psychological History: Depression Smoking Status: Current every day smoker, Vaper Past Alcohol Use History: None Reported Past Drug Use History: Cocaine, Prescription Drug Abuse - Past Family History Mother Family Medical History: Hyperlipidemia General Exam Limitations: no limitations General appearance: alert, in no apparent distress Head exam: Present: atraumatic, normocephalic Eye exam: Present: normal appearance. Absent: scleral icterus, conjunctival injection ENT exam: Present: normal oropharynx Neck exam: Present: normal inspection, full ROM Respiratory exam: Present: normal lung sounds bilaterally. Absent: respiratory distress, wheezes, rales, rhonchi, stridor, accessory muscle use Cardiovascular Exam: Present: regular rate, normal rhythm, normal heart sounds. Absent: systolic murmur, diastolic murmur, rubs, gallop GI/Abdominal exam: Present: soft. Absent: distended, tenderness, guarding, rebound, rigid, mass Extremities exam: Present: normal inspection, normal capillary refill. Absent: pedal edema, calf tenderness Back exam: Present: normal inspection. Absent: CVA tenderness (R), CVA tenderness (L) Neurological exam: Present: alert, oriented X3, CN II-XII intact. Absent: motor sensory deficit Skin exam: Present: warm, dry, intact, normal color. Absent: rash Course Vital Signs 01/12/25 01/13/25 22:09 01:39 Temperature 98.3 F Pulse Rate 100 87 Respiratory 18 16 Rate Blood Pressure 136/87 131/75 O2 Sat by Pulse 97 98 Oximetry EKG Findings - EKG Results: EKG: interpreted by PRATEEK, sinus rhythm (Rate 93 bpm), normal axis, normal QRS, normal ST/T, no acute changes Medical Decision Making - Medical Decision Making Was pt. sent in by a medical professional or institution (JUNIE Shafer, MIXING TECHNICIAN, urgent care, hospital, or fci...) When possible be specific @ -[No] Did you speak to anyone other than the patient for history (EMS, parent, family, police, friend...)? What history was obtained from this source @ -[No] Did you review nursing and triage notes (agree or disagree)? Why? @ -[I reviewed and agree with nursing and triage notes] Were old charts reviewed (outside hosp., previous admission, EMS record, old EKG, old radiological studies, urgent care reports/EKG's, fci records)? Report findings @ -[No old charts were reviewed] Differential Diagnosis (chest pain, altered mental status, abdominal pain women, abdominal pain men, vaginal bleeding, weakness, fever, dyspnea, syncope, headache, dizziness, GI bleed, back pain, seizure, CVA, palpatations, mental health, musculoskeletal)? @ -[Differential: Hypoglycemia, shock, sepsis, hyponatremia, anemia, infection, PA, ETOH, adverse medicine reaction, overdose, stroke, this is not meant to be an all-inclusive list. EKG interpreted by me (3pts min.). @ -[I interpreted as above] X-rays interpreted by me (1pt min.). @ -[None done] CT interpreted by me (1pt min.). @ -[None done] U/S interpreted by me (1pt. min.). @ -[None done] What testing was considered but not performed or refused? (CT, X-rays, U/S, labs)? Why? @ -[None] What meds were considered but not given or refused? Why? @ -[None] Did you discuss the management of the patient with other professionals (professionals i.e. , PA, MIXING TECHNICIAN, lab, RT, psych nurse, social and political studies professor, baggageman, teacher, aoc operations intelligence officer, patient case coordinator)? Give summary @ -[No] Was smoking cessation discussed for >3mins.? @ -[No] Was critical care preformed (if so, how long)? @ -[No] Were there social determinants of health that impacted care today? How? (Homelessness, low income, unemployed, alcoholism, drug addiction, transportation, low edu. Level, literacy, decrease access to med. care, penitentiary, rehab)? @ -[No] Was there de-escalation of care discussed even if they declined (Discuss DNR or withdrawal of care, Hospice)? DNR status @ -[No] What co-morbidities impacted this encounter? (DM, HTN, Smoking, COPD, CAD, Cancer, CVA, ARF, Chemo, Hep., AIDS, mental health diagnosis, sleep apnea, morbid obesity)? @ -[None] Was patient admitted / discharged? Hospital course, mention meds given and route, prescriptions, significant lab abnormalities, going to OR and other pertinent info. @ -[Patient is a 29-year-old woman seen for constellation of nonspecific symptoms. The history and physical exam suggest patient may have mild dehydration, may have underlying viral syndrome. The patient feeling better following IV fluids, when she was reevaluated. At this point stable for going home with return if any new symptoms develop or no improvement. Undiagnosed new problem with uncertain prognosis? @ -[No] Drug Therapy requiring intensive monitoring for toxicity (Heparin, Nitro, Insulin, Cardizem)? @ -[No] Were any procedures done? @ -[No] Diagnosis/symptom? @ -[Acute dehydration Acute, or Chronic, or Acute on Chronic? @ -Acute Uncomplicated (without systemic symptoms) or Complicated (systemic symptoms)? @ -[Uncomplicated Side effects of treatment? @ -[No] Exacerbation, Progression, or Severe Exacerbation? @ -[No] Poses a threat to life or bodily function? How? (Chest pain, USA, PA, pneumonia, PE, COPD, DKA, ARF, appy, cholecystitis, CVA, Diverticulitis, Homicidal, Suicidal, threat to staff... and all critical care pts) @ -[No] All treatments are based on ideal body weight as in ED triage - Lab Data Result diagrams: 01/12/25 22:44 01/12/25 22:44 Lab Results 01/12/25 01/12/25 01/12/25 Range/Units 22:30 22:44 22:44 WBC 10.33 H (4.50-10.00) 10*3/uL RBC 4.64 (4.10-5.20) 10*6/uL Hgb 10.1 L (12.0-15.0) g/dL Hct 32.0 L (37.2-46.3) % MCV 69.0 L (80.0-97.0) fL MCH 21.8 L (27.0-32.0) pg MCHC 31.6 L (32.0-37.0) g/dL Plt Count 262 (140-440) 10*3/uL MPV 11.2 (9.5-12.2) fL Immature Gran % (Auto) 0.3 % Neutrophils % 83.2 % Lymphocytes % 11.9 % Monocytes % 3.8 % Eosinophils % 0.3 % Basophils % 0.5 % Immature Gran # 0.03 (0.00-0.04) 10*3/uL Neutrophils # 8.60 H (1.80-7.70) 10*3/uL Lymphocytes # 1.23 (0.90-5.00) 10*3/uL Monocytes # 0.39 (0.20-1.00) 10*3/uL Eosinophils # 0.03 L (0.04-0.35) 10*3/uL Basophils # 0.05 (0.00-0.10) 10*3/uL Sodium 138 (137-145) mmol/L Potassium 4.2 (3.5-5.1) mmol/L Chloride 107 (98-107) mmol/L Carbon Dioxide 18 L (22-30) mmol/L Anion Gap 13 mmol/L BUN 10 (7-17) mg/dL Creatinine 0.54 (0.52-1.04) mg/dL Est GFR (CKD-EPI)AfAm >90 (>60 ml/min/1.73 sqM) Est GFR (CKD-EPI)NonAf >90 (>60 ml/min/1.73 sqM) Glucose 120 H (74-99) mg/dL POC Glucose (mg/dL) 132 H (70-110) mg/dL POC Glu Editorial Specialist ID Apoorva Hyatt Plasma Lactic Acid Maurice (0.7-2.0) mmol/L Calcium 9.7 (8.4-10.2) mg/dL Total Bilirubin 0.6 (0.2-1.3) mg/dL AST 22 (14-36) U/L ALT 12 (4-34) U/L Alkaline Phosphatase 97 (38-126) U/L Total Protein 7.9 (6.3-8.2) g/dL Albumin 4.5 (3.5-5.0) g/dL Urine Color Urine Appearance (Clear) Urine pH (5.0-8.0) Ur Specific [place] (1.001-1.035) Urine Protein (Negative) Urine Glucose (UA) (Negative) Urine Ketones (Negative) Urine Blood (Negative) Urine Nitrite (Negative) Urine Bilirubin (Negative) Urine Urobilinogen (<2.0) mg/dL Ur Leukocyte Esterase (Negative) Urine RBC (0-5) /hpf Urine WBC (0-5) /hpf Ur Squamous Epith Cells (0-4) /hpf Urine Bacteria (None) /hpf Urine HCG, Qual (Not Detectd) 01/12/25 01/13/25 01/13/25 Range/Units 22:44 00:25 00:25 WBC (4.50-10.00) 10*3/uL RBC (4.10-5.20) 10*6/uL Hgb (12.0-15.0) g/dL Hct (37.2-46.3) % MCV (80.0-97.0) fL MCH (27.0-32.0) pg MCHC (32.0-37.0) g/dL Plt Count (140-440) 10*3/uL MPV (9.5-12.2) fL Immature Gran % (Auto) % Neutrophils % % Lymphocytes % % Monocytes % % Eosinophils % % Basophils % % Immature Gran # (0.00-0.04) 10*3/uL Neutrophils # (1.80-7.70) 10*3/uL Lymphocytes # (0.90-5.00) 10*3/uL Monocytes # (0.20-1.00) 10*3/uL Eosinophils # (0.04-0.35) 10*3/uL Basophils # (0.00-0.10) 10*3/uL Sodium (137-145) mmol/L Potassium (3.5-5.1) mmol/L Chloride (98-107) mmol/L Carbon Dioxide (22-30) mmol/L Anion Gap mmol/L BUN (7-17) mg/dL Creatinine (0.52-1.04) mg/dL Est GFR (CKD-EPI)AfAm (>60 ml/min/1.73 sqM) Est GFR (CKD-EPI)NonAf (>60 ml/min/1.73 sqM) Glucose (74-99) mg/dL POC Glucose (mg/dL) (70-110) mg/dL POC Glu Editorial Specialist ID Plasma Lactic Acid Maurice 0.9 (0.7-2.0) mmol/L Calcium (8.4-10.2) mg/dL Total Bilirubin (0.2-1.3) mg/dL AST (14-36) U/L ALT (4-34) U/L Alkaline Phosphatase (38-126) U/L Total Protein (6.3-8.2) g/dL Albumin (3.5-5.0) g/dL Urine Color Colorless Urine Appearance Clear (Clear) Urine pH 5.5 (5.0-8.0) Ur Specific [place] 1.009 (1.001-1.035) Urine Protein Negative (Negative) Urine Glucose (UA) Negative (Negative) Urine Ketones 2+ H (Negative) Urine Blood Small H (Negative) Urine Nitrite Negative (Negative) Urine Bilirubin Negative (Negative) Urine Urobilinogen <2.0 (<2.0) mg/dL Ur Leukocyte Esterase Negative (Negative) Urine RBC 2 (0-5) /hpf Urine WBC 1 (0-5) /hpf Ur Squamous Epith Cells <1 (0-4) /hpf Urine Bacteria Rare H (None) /hpf Urine HCG, Qual Not Detected (Not Detectd) Disposition Clinical Impression: Dehydration Disposition: HOME SELF-CARE Condition: Good Instructions (If sedation given, give patient instructions): Dehydration (ED), Dizziness (ED) Is patient prescribed a controlled substance at d/c from ED?: No Referrals: Wayne Ramirez DO [Primary Care Provider] - 1-2 days
[2025-01-12 23:24] LABS: Potassium 4.2 mmol/L (3.5-5.1)
[2025-01-12 23:25] LABS: ALT 12 U/L (4-34); AST 22 U/L (14-36); African American GFR (CKD) >90 (>60 ml/min/1.73 sqM); Albumin 4.5 g/dL (3.5-5.0); Alkaline Phosphatase 97 U/L (38-126); Anion Gap 13 mmol/L; Blood Urea Nitrogen 10 mg/dL (7-17); Calcium 9.7 mg/dL (8.4-10.2); Carbon Dioxide 18 mmol/L (22-30); Chloride 107 mmol/L (98-107); Glucose 120 mg/dL (74-99); Non-African American GFR(CKD) >90 (>60 ml/min/1.73 sqM); Sodium 138 mmol/L (137-145); Total Bilirubin 0.6 mg/dL (0.2-1.3); Total Protein 7.9 g/dL (6.3-8.2)
[2025-01-13 01:40] VITALS: BP 131/75; PULSE 87; RESP 16
[2025-01-13 01:56] LABS: Appearance,Urine Clear (Clear); Bacteria,Urine Rare /hpf; Bilirubin,Urine Negative (Negative); Blood,Urine Small (Negative); Color,Urine Colorless; Glucose,Urine (UA) Negative (Negative); Ketones,Urine 2+ (Negative); Leukocyte Esterase,Urine Negative (Negative); Nitrite,Urine Negative (Negative); PH, Urine 5.5 (5.0-8.0); Protein,Urine Negative (Negative); RBC,Urine 2 /hpf (0-5); Specific Gravity,Urine 1.009 (1.001-1.035); Squamous Epithelial Cell,Urine <1 /hpf (0-4); Urobilinogen,Urine <2.0 mg/dL (<2.0); WBC,Urine 1 /hpf (0-5)
[2025-01-13] MEDS: ONDANSETRON 4 MG ODT STARTER PACK 2 TAB BTL PO STA (02:55)
== END 2025-01-13 02:58 | disposition home or self-care (01) ==
LOC: EC 22:08
DX: E86.0 Dehydration (principal); E10.9 Type 1 diabetes mellitus without complications; Z79.4 Long term (current) use of insulin; F17.290 Nicotine dependence, other tobacco product, uncomplicated; Z88.0 Allergy status to penicillin; Z88.1 Allergy status to other antibiotic agents; Z88.2 Allergy status to sulfonamides; Z88.7 Allergy status to serum and vaccine; Z88.8 Allergy status to other drugs, medicaments and biological substances
CPT/HCPCS: 36415; 93005; 80053; 83605; 85025; 81001; 81025; 99284; 96374; 96361; J2405; S0119